=== PATIENT | female | born 1965 | race Two or more races ===

== ENCOUNTER 2023-06-03 11:00 | Outpatient (REF) | payer OTHER, SELFPAY ==
[2023-06-03 15:08] LABS: Alanine Aminotransferase 17 U/L (0-31); Albumin Level 4.3 g/dL (3.5-5.0); Alkaline Phosphatase 103 U/L (39-117); Aspartate Amino Transferase 21 U/L (5-31); Bilirubin Direct 0.2 mg/dL (0.0-0.5); Bilirubin Total 0.6 mg/dL (0.0-1.0); Total Protein 7.7 g/dL (6.5-8.0)
[2023-06-04 08:20] LABS: Hepatitis A Antibody IgM 0.29 Index (0-0.79); ~Hepatitis A Antibody IgM Nonreactive (Nonreactive)
[2023-06-04 08:45] LABS: HBS Num1 0.27 mIU/mL (0-7.99); HBc Num1 0.12 S/CO (0.00-0.79); HBsAGNum1 0.39 S/CO (0.00-0.99); Hepatitis B Core Antibody Nonreactive (Nonreactive); Hepatitis B Surface Antigen Negative (Negative); ~HepC Num1 0.07 S/CO (0.00-0.79); ~Hepatitis B Surface Antibody NONREACTIVE (Nonreactive); ~Hepatitis C Antibody Nonreactive (Nonreactive)
== END 2023-06-03 11:01 | disposition home or self-care (01) ==
LOC: HO.CHCLDS 11:00
PROVIDERS: Visit Provider Registered Nurse
DX: R10.11 Right upper quadrant pain (principal)
CPT/HCPCS: 36415; 80076; 86704; 86706; 86709; 86803; 87340

== ENCOUNTER 2023-09-27 10:06 | Outpatient (REF) | payer OTHER, SELFPAY ==
[2023-09-27 14:49] LABS: Alanine Aminotransferase 17 U/L (0-31); Albumin Level 4.1 g/dL (3.5-5.0); Alkaline Phosphatase 88 U/L (39-117); Anion Gap 11 (12-20); Aspartate Amino Transferase 26 U/L (5-31); Bilirubin Total 0.5 mg/dL (0.0-1.0); Blood Urea Nitrogen 13 mg/dL (9-16); Carbon Dioxide 26 mmol/L (22-29); Chloride 107 mmol/L (96-108); Cholesterol 229 mg/dL (<200); Estimated Glomerular Filt Rate > 60; Glucose Random 77 mg/dL (60-115); HDL Cholesterol 49 mg/dL (>40); LDL Cholesterol Calculated 143 mg/dL (<100); Potassium 3.9 mmol/L (3.3-5.1); Sodium 140 mmol/L (135-145); Total Protein 7.4 g/dL (6.5-8.0); Triglycerides 186 mg/dL (<150)
[2023-09-27 15:04] LABS: TSH reflex Free T4 1.54 uIU/mL (0.32-4.0)
== END 2023-09-27 10:07 | disposition home or self-care (01) ==
LOC: HO.CHCLDS 10:06
PROVIDERS: Visit Provider Internal Medicine
DX: E78.2 Mixed hyperlipidemia (principal); E03.9 Hypothyroidism, unspecified
CPT/HCPCS: 36415; 80053; 80061; 84443

== ENCOUNTER 2024-02-18 11:16 | Outpatient (REF) | payer OTHER, SELFPAY ==
[2024-02-18 15:09] LABS: Cholesterol 220 mg/dL (<200); HDL Cholesterol 50 mg/dL (>40); LDL Cholesterol Calculated 132 mg/dL (<100); Triglycerides 191 mg/dL (<150)
== END 2024-02-18 11:17 | disposition home or self-care (01) ==
LOC: HO.CHCLDS 11:16
PROVIDERS: Visit Provider Internal Medicine
DX: E78.2 Mixed hyperlipidemia (principal)
CPT/HCPCS: 36415; 80061

== ENCOUNTER 2024-08-23 11:51 | Outpatient (REF) | payer OTHER, SELFPAY ==
[2024-08-23 14:49] LABS: Alanine Aminotransferase 25 U/L (0-31); Albumin Level 4.2 g/dL (3.5-5.0); Alkaline Phosphatase 112 U/L (39-117); Anion Gap 11 (12-20); Aspartate Amino Transferase 27 U/L (5-31); Bilirubin Total 0.5 mg/dL (0.0-1.0); Blood Urea Nitrogen 10 mg/dL (9-16); Carbon Dioxide 29 mmol/L (22-29); Chloride 106 mmol/L (96-108); Cholesterol 223 mg/dL (<200); Estimated Glomerular Filt Rate > 60; Glucose Random 82 mg/dL (60-115); HDL Cholesterol 54 mg/dL (>40); LDL Cholesterol Calculated 135 mg/dL (<100); Potassium 4.3 mmol/L (3.3-5.1); Sodium 142 mmol/L (135-145); Total Protein 7.8 g/dL (6.5-8.0); Triglycerides 173 mg/dL (<150)
[2024-08-23 14:57] LABS: TSH reflex Free T4 0.01 uIU/mL (0.32-4.0)
[2024-08-23 15:34] LABS: Free T4 (Free Thyroxine) 1.39 ng/dL (0.71-1.85)
== END 2024-08-23 11:52 | disposition home or self-care (01) ==
LOC: HO.CHCLDS 11:51
PROVIDERS: Visit Provider Internal Medicine
DX: E78.2 Mixed hyperlipidemia (principal); E03.9 Hypothyroidism, unspecified
CPT/HCPCS: 36415; 80053; 80061; 84439; 84443

== ENCOUNTER 2025-01-12 12:04 | Outpatient (REF) | payer OTHER, SELFPAY ==
--- OUTSIDE RECORDS SUMMARY | 2025-01-12 14:21 | XMS_ITS | Encounter Summary ---
Author Organization [email or web address] Address [address] [facility] 7t [place] [address] Care Team Providers Care Shaft Headman Name Role Phone Richie Fam MD Primary Care Prov ider Reason for Visit * Reason Comments Med Refill Encounter Details Date Type Department Care Team ([facility] st Contact Info) Description 09/02/2024 Refill [facility] CHC MED & PEDS [address] [place], [place] [phone] Richie Fam MD 505 [place] [address] Mixed hyperlipidemia Social History Tobacco Use Types Packs/Day Years Used Date Smoking Tobacco: Never Passive Smoke Exposure: Never Smokeless Tobacco: Never Alcohol Use Standard Drinks/Week Comments Never 0 (1 standard drink = 0.6 oz pur e alcohol) Depression Answer Date Recorded Patient Health Questionnaire-9 Score 0 08/30/2024 Patient Health Questionnaire-9 Score 0 08/30/2024 Last PHQ-9: Questionnaire Data Not on file 1 Housing Stability Answer Date Recorded What is your housing situation today? I have mary dominguez 09/07/[address] you li ve. Do you have problems with any of the following? None of the above 09/07/2023 Food Insecurity Answer Date Recorded Within the past 12 months, y ou worried that your food would run out before you got money to buy more: Never True 09/07/2023 Within the past 12 months,th e food you bought just didn't last and you didn't have enough money to get more: Never True Transportation Answer Date Recorded In the past 12 months, has l ack of transportation kept you from medical appts, meetings, work or from getting things needed for daily living? No 09/07/2023 Utilities Answer Date Recorded In the past 12 months, has t he electric, gas, oil or water company threatened to shut off services in your home? No 09/07/2023 Depression Answer Date Recorded Patient Health Questionnaire-2 Score 0 08/30/2024 Comments Unknown Sex and Gender Information Value Date Recorded Sex Assigned at Female 09/14/2022 10:37 AM EDT Legal Sex Female 10:37 AM EDT Gender Identity Female 09/14/2022 10:37 AM EDT Sexual Orientation Straight 09/14/2022 10 :37 AM EDT documented as of this encounter Plan of Treatment Not on file documented as of this encounter Visit Diagnoses Diagnosis Mixed hyperlipidemia documented in this encounter Additional Health Concerns Assessment Noted Time PHQ-9 Depression Total Score: 0 08/30/20 24 9:27 AM EDT documented as of this encounter Care Teams Shaft Headman Relationship Specialty Start Date End Date Richie Fam MD [address] [place] [id number] PCP - General Internal Medicine 10/21/20 documented as of this encounter
--- OUTSIDE RECORDS SUMMARY | 2025-01-12 14:21 | XMS_ITS | Encounter Summary ---
Author Organization [employer] Address [address] [place] [address] 7 [place] [address] Care Team Providers Care Director Of Mobile Marketing Name Role Phone Richie Fam MD Primary Care Prov ider Encounter Details Date Type Department Care Team (Late st Contact Info) Description 12/21/2022 Telephone [facility] MEDICINE [address] [place], [place] [phone] Richie Fam MD [address] [place], [place] [phone] Social History Tobacco Use Types Packs/Day Years Used Date Smoking Tobacco: Never Passive Smoke Exposure: Never Smokeless Tobacco: Never Alcohol Use Standard Drinks/Week Comments Never 0 (1 standard drink = 0.6 oz pur e alcohol) Comments Unknown Sex and Gender Information Value Date Recorded Sex Assigned at Female 09/14/2022 10:37 AM EDT Legal Sex Female 10:37 AM EDT Gender Identity Female 09/14/2022 10:37 AM EDT Sexual Orientation Straight 09/14/2022 10 :37 AM EDT COVID-19 Exposure Response Date Recorded In the last 10 days, have yo u been in contact with someone who was confirmed or suspected to have Coronavirus/COVID-19? No / Unsure 12/24/2022 10:38 AM EST documented as of this encounter Plan of Treatment Not on file documented as of this encounter Visit Diagnoses Not on filedocumented in this encounter Care Teams Director Of Mobile Marketing Relationship Specialty Start Date End Date Richie Fam MD [address] [place] [address] PCP - General Internal Medicine 10/21/20 documented as of this encounter
--- OUTSIDE RECORDS SUMMARY | 2025-01-12 14:21 | XMS_ITS | Encounter Summary ---
Author Organization [employer] Address [address] [place] [address] 7 [place] [address] Care Team Providers Care Dog Walker Name Role Phone Richie Fam MD Primary Care Prov ider Encounter Details Date Type Department Care Team (Late st Contact Info) Description 07/15/2023 Orders Only [facility] CHC MED & PEDS [address] [place], [place] [phone] Richie Fam MD 505 [place] [address] Social History Tobacco Use Types Packs/Day Years Used Date Smoking Tobacco: Never Passive Smoke Exposure: Never Smokeless Tobacco: Never Alcohol Use Standard Drinks/Week Comments Never 0 (1 standard drink = 0.6 oz pur e alcohol) Depression Answer Date Recorded Patient Health Questionnaire-9 Score 0 04/01/2023 Depression Answer Date Recorded Patient Health Questionnaire-2 Score 0 04/01/2023 Comments Unknown Sex and Gender Information Value Date Recorded Sex Assigned at Female 09/14/2022 10:37 AM EDT Legal Sex Female 10:37 AM EDT Gender Identity Female 09/14/2022 10:37 AM EDT Sexual Orientation Straight 09/14/2022 10 :37 AM EDT documented as of this encounter Plan of Treatment Not on file documented as of this encounter Visit Diagnoses Not on filedocumented in this encounter Additional Health Concerns Assessment Noted Time PHQ-9 Depression Total Score: 0 04/01/20 23 1:50 PM EDT documented as of this encounter Care Teams Dog Walker Relationship Specialty Start Date End Date Richie Fam MD [address] [place] [address] PCP - General Internal Medicine 10/21/20 documented as of this encounter
--- OUTSIDE RECORDS SUMMARY | 2025-01-12 14:21 | XMS_ITS | Encounter Summary ---
Author Organization [employer] Address [address] [facility] 7 [place] [address] Care Team Providers Care Office Electrician Name Role Phone Richie Fam MD Primary Care Prov ider Reason for Visit * Reason Onset Date Comments Call Back Request 08/14/2024 Encounter Details Date Type Department Care Team ([facility] st Contact Info) Description 08/14/2024 Telephone [facility] MEDICINE [address] [place] [address] Richie Fam MD 505 [place] [address] Call Back Request Social History Tobacco Use Types Packs/Day Years Used Date Smoking Tobacco: Never Passive Smoke Exposure: Never Smokeless Tobacco: Never Alcohol Use Standard Drinks/Week Comments Never 0 (1 standard drink = 0.6 oz pur e alcohol) Depression Answer Date Recorded Patient Health Questionnaire-9 Score 0 04/01/2023 Housing Stability Answer Date Recorded What is [...] AM EDT documented as of this encounter Miscellaneous Notes * Telephone Encounter - Victoriano Skinner - 08/14/2024 9:28 AM EDT Tc from patient requesting a call back states had done the labs as requested on 07/27 at [facility] in [facility] and was told there is no results in the system would like to know what to do documented in this encounter Plan of Treatment Not on file documented as of this encounter Visit Diagnoses Not on filedocumented in this encounter Additional Health Concerns Assessment Noted Time PHQ-9 Depression Total Score: 0 04/01/20 23 1:50 PM EDT documented as of this encounter Care Teams Office Electrician Relationship Specialty Start Date End Date Richie Fam MD [address] [place] [id number] PCP - General Internal Medicine 10/21/20 documented as of this encounter
--- OUTSIDE RECORDS SUMMARY | 2025-01-12 14:21 | XMS_ITS | Encounter Summary ---
Author Organization [employer] Address [address] [facility] 7 [place] [address] Care Team Providers Care Agriculture Extension Specialist Name Role Phone Richie Fam MD Primary Care Prov ider Reason for Visit * Reason Onset Date Comments Created In Error 07/25/2024 Encounter Details Date Type Department Care Team ([facility] st Contact Info) Description 07/25/2024 Telephone [facility] MEDICINE [address] [place] [address] Richie Fam MD 505 [place] [address] Created In Error Social History Tobacco Use Types Packs/Day Years [...] documented as of this encounter Care Teams Agriculture Extension Specialist Relationship Specialty Start Date End Date Richie Fam MD [address] [place] [id number] PCP - General Internal Medicine 10/21/20 documented as of this encounter
--- OUTSIDE RECORDS SUMMARY | 2025-01-12 14:21 | XMS_ITS | Encounter Summary ---
Author Organization [employer] Address [address] [facility] 7 [place] [address] Care Team Providers Care Plow Mechanic Name Role Phone Richie Fam MD Primary Care Prov ider Reason for Visit * Reason Onset Date Comments Nurse Triage 07/25/2024 Encounter Details Date Type Department Care Team ([facility] st Contact Info) Description 07/25/2024 Telephone [facility] MEDICINE [address] [place] [address] Richie Fam MD 505 [place] [address] Nurse Triage Social History Tobacco Use Types Packs/Day Years [...] encounter Miscellaneous Notes * Telephone Encounter - Mnady Brasher RN - 07/25/2024 10:50 AM EDT Triage call Pt reports increased heart burn over the last 2 weeks. Pt reports prescribed omeprazolehas not been taken due to increased fibromyalgia pain which is a side effect. Pt reports sour aftertaste consistently. Pt has taken tums with some effect. Pt reports some chest discomfort as well. ASK apt with Dr. Grimm 07/27/24 @ 400pm. Pt is given home care advise, increase liquids to 6- 8 glasses daily, maalox/mylanta OTC may help. Pt agrees with disposition and Insurance is verified as active prior to booking. Protocol Used: Abdominal Pain - Upper (Adult) Protocol-Based Disposition: See in Office or Video Visit within 2 Weeks Video visit not offered Positive Triage Question: * Intermittent pains shoot into chest, with sour taste in mouth (Exception: Symptoms same as previously diagnosed reflux and not tried antacids.) * All higher-acuity triage questions were negative Care Advice Discussed: * Reassurance and Education - Stomach Pain * Antacid Medicine * Drink Clear Fluids * Diet * Food Recommendations to Reduce Reflux * Reasons To Call Back - Severe pain present over 1 hour - Moderate pains come and go for more than 24 hours - Mild pains come and go for more than 72 hours - You become worse * Telephone Encounter - Reggie Emerson - 07/25/2024 10:12 AM EDT Symptoms: Heartburn - Caller Reports, Abdominal Swelling Outcome: Transfer to a nurse or provider NOW! Reason: Heaviness on chest documented in this encounter Plan of Treatment Not on file documented as of this encounter Visit Diagnoses Not on filedocumented in this encounter Additional Health Concerns Assessment Noted Time PHQ-9 Depression Total Score: 0 04/01/20 23 1:50 PM EDT documented as of this encounter Care Teams Plow Mechanic Relationship Specialty Start Date End Date Richie Fam MD [address] [place] [id number] PCP - General Internal Medicine 10/21/20 documented as of this encounter
--- OUTSIDE RECORDS SUMMARY | 2025-01-12 14:21 | XMS_ITS | Clinical Summary ---
Author Organization [employer] Address [address] [place] [address] 7t [place] [address] Care Team Providers Care Stone Layout Marker Name Role Phone Richie Fam MD Primary Care Prov ider Allergies Active Allergy Reactions Criticality Noted Date Comments Morphine Itching High 05/28/2015 Procaine Palpitations,Shortne ss of breath High 10/26/2018 Other reaction(s): Procaine, Procaine Medications triamcinolone (Kenalog) 0.5 % cream APPLY THIN LAYER TOPICALLY TO THE AFFECTED AREA TWICE DAILY FOR 7 DAYS 2 Active polyethylene glycol, PEG, 3350 (MiraLax) 17 GM/SCOOP powder Take 17 g by mouth. 2 Active omeprazole (PriLOSEC) [address] capsule TAKE 1 CAPSULE BY MOUTH EVERY DAY 30 MINUTES BEFORE BREAKFAST 3 Active loratadine (Claritin) 10 MG tablet Take 10 mg by mouth in the morning. 3 Active ketotifen (Zaditor) 0.025 % ophthalmic solution 3 Active fluticasone (Flonase) 50 MCG/ACT nasal spray INSTILL 1 SPRAY IN EACH NOSTRIL ONCE A DAY 3 Active famotidine (Pepcid) 40 MG tablet Take 1 tablet by mouth at bed time. 2 Active ibuprofen 400 MG tabletIndications: Pharyngitis, unspecified etiology Take 1 tablet (400 mg) by mouth if needed in the morning, at noon, in the evening, and at bedtime for mild pain. 30 tablet 3 Active albuterol 108 (90 Base) MCG/ACT inhaler Inhale 2 puffs every 4 (four) hours if needed for shortness of breath. 18 g 1 3 Active hydrOXYzine pamoate (Vistaril) 25 MG capsule TAKE 1 CAPSULE BY MOUTH TWICE DAILY NEEDED FOR ANXIETY OR SLEEP 30 capsule 2 3 Active tretinoin (Retin-A) 0.025 % creamIndications:M ilium cyst Apply topically at bedtime. 45 g 11 4 03/28/20 25 Active levothyroxine (Synthroid, Levoxyl) 50 MCG tablet Take 1 tablet (50 mcg) by mouth before breakfast. 30 tablet 11 4 08/30/20 25 Active sucralfate (Carafate) 1 g tablet TAKE 1 TABLET(1 GRAM) BY MOUTH BEFORE BREAKFAST AND BEFORE THE EVENING MEAL 60 tablet 4 Active simvastatin (Zocor) 40 MG tabletIndications: Mixed hyperlipidemia TAKE 1 TABLET(40 MG) BY MOUTH IN THE EVENING 90 tablet 3 5 Active Active Problems Problem Noted Date Diagnosed Date EPPERSON (nonalcoholic steatohepatitis) 09/16/2023 Assessment & Plan (03/07/2024 1:20 PM EDT): Followed by gastroenterology, encouraged weight loss, Assessment & Plan (09/16/2023 2:39 PM EDT): Mri done recently, no liver mass, followed by gastroenterology Skin growth 09/16/2023 Assessment & Plan (09/16/2023 2:43 PM EDT): Patient complains of multiple dark skin growth on her back, wants to be evaluated by dermatology, referral will be placed Annual physical exam 12/24/2022 Atypical chest pain 12/17/2022 Hyperlipidemia 12/17/2022 Assessment & Plan (08/30/2024 9:58 AM EDT): Will leave on current therapy, encouraged exercise, weight loss healthy lifestyle, will continue monitoring Assessment & Plan (08/17/2024 3:03 PM EDT): On simvastatin 40mg, she has not tolerated high intensity statin or increase in simvastatin, will order new labs to evaluate current trend, follow up in 1 month to discuss result and evaluate other treatment options Assessment & Plan (03/07/2024 1:22 PM EDT): On simvastatin 40mg, slight improvement in cholesterol, encouraged diet and exercise, continue weight loss, follow up in 6 months Assessment & Plan (09/16/2023 2:38 PM EDT): On simvastatin, high intensity statin have been tried previously but they were not tolerated by patient, new labs will be ordered for guidance Assessment & Plan (04/01/2023 2:16 PM EDT): Will place new lab orders for guidance of therapy, she has been eating healthier and exercising more frequently, will call with results Assessment & Plan (02/02/2023 6:26 PM EDT): Patient had nausea/vomiting, related to rosuvastatin, will switch back to simvastatin 20mg, repeat labs in 3 months Assessment & Plan (12/24/2022 11:32 PM EST): Not controlled, will switch to rosuvastatin 10mg, and will follow up in 2 months Migraines 12/17/2022 PTSD (post-traumatic stress disorder) 12/17/2022 Seasonal asthma 12/17/2022 Thrombocytosis 12/17/2022 Pharyngitis 12/17/2022 Assessment & Plan (12/17/2022 4:59 PM EST): Rapid strep negative, no erythema, or exudates, she reports right sided pain and swelling, this was not visualized on examination and also no mass was detected on manual palpation. Did make her a followup with her PCP to assess how she is doing. Use ibuprofen prn. Disease due to severe acute respiratory syndrome coronavirus 2 (SARS-CoV-2) 09/06/2022 Overview (12/17/2022): Problem added by Discern Expert Constipation 11/18/2021 Overview (12/17/2022): Added automatically from request for surgery [id number] Fibromyalgia 06/14/2017 Endometriosis determined by laparoscopy 06/14/20 17 Overview (12/17/2022): 2007 Hypothyroid 06/14/2017 Assessment & Plan (08/30/2024 9:59 AM EDT): Will decrease levothyroxine to 50mcg, new thyroid ultrasound will be ordered due to hx of thyroid nodules, labs to be repeated in 6-8 weeks Assessment & Plan (08/17/2024 3:02 PM EDT): On levothyroxine 50mcg, new labs will be ordered for guidance of therapy, she is clinically euthyroid Assessment & Plan (03/07/2024 1:21 PM EDT): Followed by endocrinology, on levothyroxine 75mcg, no changes will be made Assessment & Plan (09/16/2023 2:37 PM EDT): On oral replacement, will order new labs for guidance of therapy Assessment & Plan (12/24/2022 11:32 PM EST): Will order new labs for guidance of therapy, clnically euthyroid Pain of multiple sites 06/14/2017 Dysphagia 05/28/2015 Overview (12/17/2022): Apparently endoscopy done X 3-5 times - ? findings Encounters Date Type Department Care Team Description 11/30/2024 Refill [facility] CHC MED & PEDS [address] [place] [address] Richie Fam MD Mixed hyperlipidemia from Last 3 Months Immunizations Name Administration Dates Next Due Tdap 03/26/2022 Social History Tobacco Use Types Packs/Day Years Used Date Smoking Tobacco: Never Passive Smoke Exposure: Never Smokeless Tobacco: Never Tobacco Cessation:Counseling Given: Not Answered Alcohol Use Standard Drinks/Week Comments Never 0 [...] t he electric, gas, oil or water [employer] threatened to shut off services in your home? No 09/07/2023 Depression Answer Date Recorded Patient Health Questionnaire-2 Score 0 08/30/2024 Comments Unknown Sex and Gender Information Value Date Recorded Sex Assigned at Female 09/14/2022 10:37 AM EDT Legal Sex Female 10:37 AM EDT Gender Identity Female 09/14/2022 10:37 AM EDT Sexual Orientation Straight 09/14/2022 10 :37 AM EDT Last Filed Vital Signs Vital Sign Reading Time Taken Comments Blood Pressure 131/71 07/27/2024 4:16 PM EDT Pulse 80 07/27/2024 4:16 PM EDT Temperature 37.1 ??C (98.7 ??F) 07/27/2024 4:16 PM ED T Respiratory Rate 20 07/27/2024 4:16 PM EDT Oxygen Saturation 96% 03/28/2024 10:02 AM EDT Inhaled Oxygen Concentration - - Weight 61.8 kg (136 lb 3.2 oz) 07/27/2024 4:16 P M EDT Height 149.9 cm (4' 11 ) 07/27/2024 4:16 PM EDT Body Mass Index 27.51 07/27/2024 4:16 PM EDT Plan of Treatment Health Maintenance Due Date Last Done Comments CT Colonography 1963 FIT DNA/Cologuard 1963 FIT 1963 FOBT 1963 Sigmoidoscopy 1963 Derm Melanoma Skin Check 05/26/1964 Alcohol/Substance Use Screening 1975 Hepatitis A Vaccines (1 of 2 - Risk 2-dose series) 1982 Pneumococcal Vaccine: 50+ Years (1 of 2 - PCV) 1982 Zoster Vaccines (1 of 2) 2013 Hepatitis B Vaccines (1 of 3 - Risk 3-dose series) 2023 RSV Patients and Patients Aged 60 years or older (1 - Risk 60-74 years 1-dose series) 2023 SDOH Screening 04/01/2024 04/01/2023 COVID-19 Vaccine (1 - 2023-2 5 season) 2024 Influenza Vaccine (#1) 2024 Tobacco Screening 07/27/2025 07/27/2024 Depression Screening 08/30/2025 08/30/2024, 08/30/2024 Mammogram 09/17/2025 09/17/2023 Cervical Cancer Screening 02/04/2028 HPV/Cotest 02/04/2028 02/03/2023 Pap Smear 02/04/2028 02/03/2023 Colonoscopy 01/16/2032 01/15/2022 Colorectal Cancer Screening 01/16/2032 DTaP/Tdap/Td Vaccines (2 - T d or Tdap) 03/26/2032 03/26/2022 HIV Screening Completed 10/28/2020 Hepatitis C Screening Completed 06/03/2023 , 04/02/2023 HIB Vaccines Aged Out No longer eligi ble based on patient's age to complete this topic HPV Vaccines Aged Out No longer eligi ble based on patient's age to complete this topic IPV Vaccines Aged Out No longer eligi ble based on patient's age to complete this topic Meningococcal Vaccine Aged Out No maria a david eligible based on patient's age to complete this topic RSV under 20 months Aged Out No longe r eligible based on patient's age to complete this topic Rotavirus Vaccines Aged Out No longer eligible based on patient's age to complete this topic Procedures Procedure Name Priority Date/Time Associated Diagnosis Comments MAMMOGRAPHY Routine 09/17/2023 HEPATITIS PANEL, GENERAL Routine 06/03/2023 11:23 AM EDT RUQ pain PAP/HPV Routine 02/03/2023 COLONOSCOPY Routine 01/15/2022 12:01 PM EST HIV 1/2 ANTIGEN/ANTIBODY, FOURTH GENERATION W/RFL Routine 10/28/2020 10:29 AM EST from Last 3 Months or Most Recently Relevant to Health Maintenance Results * Mammography (09/17/2023) Mammogram Bi-rads 2 Anatomical Region Laterality Modality Other Historical Provider MD HEALTH MAINTENANCE Final Result * Hepatitis A,B,C Profile (06/03/2023 11:23 AM EDT) Hepatitis A IgM Nonreactive Nonreactive [facility] Comment:IgM antibodies to GUILLORY V not detected; does not exclude earlyacute or recovered HAV infection. ~Hepatitis B Surface Antibody NONREACTIVE Nonreactive [facility] Comment:Nonreactive: < 8.00 mIU/mL Hepatitis B Core Antibody Nonreactive Nonreactive [facility] Hepatitis C Antibody Nonreactive Nonreactive [facility] Comment:Antibodies to HCV no t detected; does not exclude early acuteHCV infection. Hepatitis B Surface Ag Negative Negative [facility] Blood 06/03/2023 11:2 3 AM EDT 06/03/2023 2:04 PM EDT Lorelei Clinton DEPARTMENT SALES MANAGER LAB BLOOD ORDERABLES Final Res ult [facility] [address] [place] [phone] * Pap Smear (02/03/2023) Pathologist [facility] Pap Negative for intraephithelial lesion or malignancy Negative for intraephithelial lesion or malignancy, Other HPV Undetected Undetected, Indeterminate, Quantitative, Not Detected Historical Provider [facility] Final Result * Colonoscopy (01/15/2022 12:01 PM EST) Pathologist [facility] Colonoscopy Normal Normal Historical Provider [facility] Edited Result - Final * HIV 1/2 ANTIGEN/ANTIBODY,FOURTH GENERATION W/RFL (10/28/2020 10:29 AM EST) Pathologist [facility] HIV-1/2 ANTIGEN AND ANTIBODIES, 4TH GENERATION W/ REFLEX NON-REACT ALIS NON-REACT ALIS [facility] Comment: HIV-1 antigen and HIV-1/HIV-2 antibodies were not detected. There is no laboratory evidence of HIV infection. ?? PLEASE NOTE: This information has been disclosed to you from records whose confidentiality may be protected by state law. ??If your state requires such protection, then the state law prohibits you from making any further disclosure of the information without the specific written consent of the person to whom it pertains, or as otherwise permitted by law. A general authorization for the release of medical or other information is NOT sufficient for this purpose. ? For additional information please refer to http://education.Woofound.27 bards/faq/IYB338 (This link is being provided for informational/ educational purposes only.) ? The performance of this assay has not been clinically validated in patients less than 2 years old. ?? 10/28/2020 10:2 9 AM EST Richie Nava MD LAB BLOOD ORDERABL ES Final Result [facility] [address] from Last 3 Months or Most Recently Relevant to Health Maintenance Insurance [facility] Care Teams Stone Layout Marker Relationship Specialty Start Date End Date Richie Fam MD [address] [place] [phone] PCP - General Internal Medicine 10/21/20
--- OUTSIDE RECORDS SUMMARY | 2025-01-12 14:21 | XMS_ITS | Clinical Summary ---
Author Organization [facility] Address [address] [place] [address] Care Team Providers Care General Engineering Teacher Name Role Phone Stella Pratt MD Primary Care Provide r Allergies Active Allergy Reactions Criticality Noted Date Comments Morphine 01/12/2018 Medications Medication Sig Dispensed Refills Start Date End Date Status simvastatin (ZOCOR) tablet 20 mg Take 20 mg by mouth every night at bedtime. 0 Active albuterol (PROVENTIL) (2.5 MG/3ML) 0.083% nebulizer solution Take 2.5 mg by nebulization every 6 (six) hours as needed for wheezing. 0 Active omeprazole (PRILOSEC) 40 MG capsule Take 40 mg by mouth daily. 0 Active LORazepam (ATIVAN) 0.5 MG tablet Take 0.5 mg by mouth every 6 (six) hours as needed. 0 Active levothyroxine (SYNTHROID, LEVOXYL) tablet 50 mcg Take 50 mcg by mouth every morning on an empty stomach. 0 Active CALCIUM-VITAMIN D PO Take by mouth. 0 Active sertraline (ZOLOFT) 25 MG tablet Take 25 mg by mouth daily. 0 Active B Complex Vitamins (B COMPLEX PO) Take by mouth. 0 Active Active Problems No known active problems Social History Tobacco Use Types Packs/Day Years Used Date Smoking Tobacco: Never Smokeless Tobacco: Never Alcohol Use Standard Drinks/Week Comments No 0 (1 standard drink = 0.6 oz pur e alcohol) Sex and Gender Information Value Date Recorded Sex Assigned at Not on file Gender Identity Not on file Sexual Orientation Not on file Last Filed Vital Signs Vital Sign Reading Time Taken Comments Blood Pressure 121/65 01/13/2018 9:23 AM EST Pulse 84 01/13/2018 9:23 AM EST Temperature - - Respiratory Rate - - Oxygen Saturation - - Inhaled Oxygen Concentration - - Weight 58.1 kg (128 lb) 01/13/2018 9:23 AM EST Height 139.7 cm (4' 7 ) 01/13/2018 9:23 AM EST Body Mass Index 29.75 01/13/2018 9:23 AM EST Plan of Treatment Health Maintenance Due Date Last Done Comments Hepatitis C Screening 1963 COVID-19 Vaccine (#1) 05/26/1964 Depression Screening 1975 Preventative Health Evaluation 1981 DTap / Tdap / Td (1 - Tdap) 1982 Cervical Cancer Screening (P ap Smear) 1984 Colon Cancer Screening (Colonoscopy) 2008 Breast Cancer Screening (Mammogram) 2013 Shingrix-Zoster Vaccine (1 of 2) 2013 Influenza Vaccine (#1) 2024 RSV Adult > 60+ Yrs or Pregn ant (1 - 1-dose 75+ series) 2038 Hepatitis B Vaccines Aged Out No long er eligible based on patient's age to complete this topic Pneumococcal Vaccine Aged Out No long er eligible based on patient's age to complete this topic RSV Ped < 20 months Aged Out No longe r eligible based on patient's age to complete this topic Care Teams General Engineering Teacher Relationship Specialty Start Date End Date Stella Pratt MD PCP - General Internal Medicine 12/20/17
--- OUTSIDE RECORDS SUMMARY | 2025-01-12 14:21 | XMS_ITS | Encounter Summary ---
Author Organization [employer] Address [address] [place] [address] [place] [address] Care Team Providers Care Lamination Inspector Name Role Phone Richie Fam MD Primary Care Prov ider Reason for Visit * Reason Comments Med Refill Encounter Details Date Type Department Care Team ([facility] st Contact Info) Description 12/24/2022 Refill [facility] MED & PEDS [address] [place], [place] [phone] Richie Fam MD [address] [place] [address] Mixed hyperlipidemia Social History Tobacco Use Types [...] Diagnosis Mixed hyperlipidemia documented in this encounter Care Teams Lamination Inspector Relationship Specialty Start Date End Date Richie Fam MD [address] [place] [address] PCP - General Internal Medicine 10/21/20 documented as of this encounter
--- OUTSIDE RECORDS SUMMARY | 2025-01-12 14:21 | XMS_ITS | Data Portability ---
Author Organization [employer] Address [address] [place] [phone] Care Team Providers Care Batch Records Clerk Name Role Phone [facility] Referring Provider [phone] [facility] Referring Provider Assessment No assessment recorded. Plan of Treatment Reminders Order Date Submit Date Provider Last Modified By Organization Details Last Modified Time Details Appointments None record ed. Lab None record ed. Referral None record ed. Procedures None record ed. Surgeries None record ed. Imaging None record ed. Medication Orders None record ed. Patient TargetsNo targets recorded. Patient InstructionsNo instructions recorded. Reason for Referral None Reported. Medical Equipment None Reported. Allergies Allergen ID Allergen Name Allergen Category Reaction Reaction Severity Criticality Documentation Date Start Date Code Code System Note Provider Name and Address Organization Details Recorded Time 7390 morphine medicatio n Not available Not available Not available 09/12/2024 7052 RxNorm Not Available [facility] - production 4 03:37:11 Medications Name Sig Start Date Stop Date Status Note LastModified by Organization Details LastModified Time atorvastatin 40 mg tablet TAKE 1 TABLET BY MOUTH EVERY DAY active Not Available Not Available No t Available triamcinolone acetonide 0.5 % topical cream APPLY THIN LAYER TOPICALLY TO THE AFFECTED AREA TWICE DAILY FOR 7 DAYS active Not Available Not Available No t Available ketotifen 0.025 % (0.035 %) eye drops active Not Available Not Available Not Available levothyroxine 50 mcg tablet TAKE 1 TABLET BY MOUTH EVERY DAY DIRECTED active Not Available Not Available No t Available simvastatin 20 mg tablet TAKE 1 TABLET BY MOUTH EVERY DAY IN THE EVENING active Not Available Not Available No t Available ibuprofen 400 mg tablet active Not Available Not Available No t Available omeprazole 20 mg capsule,delay ed release TAKE 1 CAPSULE BY MOUTH EVERY DAY 30 MINUTES BEFORE BREAKFAST active Not Available Not Available No t Available clobetasol 0.05 % topical ointment APPLY THIN LAYER TOPICALLY TO THE AFFECTED AREA TWICE DAILY active Not Available Not Available No t Available albuterol sulfate HFA 90 mcg/actuation aerosol inhaler INHALE 2 PUFFS BY MOUTH EVERY 4 HOURS NEEDED active Not Available Not Available No t Available fluticasone propionate 50 mcg/actuation nasal spray,suspens ion INSTILL 1 SPRAY IN EACH NOSTRIL ONCE A DAY active Not Available Not Available N ot Available loratadine 10 mg tablet TAKE 1 TABLET BY MOUTH EVERY DAY active Not Available Not Available No t Available hydroxyzine pamoate 25 mg capsule TAKE 1 CAPSULE BY MOUTH TWICE DAILY NEEDED FOR ANXIETY OR SLEEP active Not Available Not Available No t Available rosuvastatin 10 mg tablet active Not Available Not Available Not Available Vitals Date Recorded Oxygen saturation Oxygen saturation in Arterial blood by Pulse oximetry Respiratory rate Body temperature Body weight Heart rate Systolic blood pressure Diastolic blood pressure Provider Name and Address Organization Details Last Updated DateTime 3 98 % 98 % 18 /min 97.1 [degF] 40891.3 28 g 85 /min 122 mm[Hg] 66 mm[Hg] Not Available [facility] - production 3 11:54:59 Social History None recorded. Functional Status None recorded. Mental Status None recorded. Family History Nothing Reported. Medical History No medical history recorded. Gynecological HistoryNo gynecological history recorded. Obstetrics History GPAL:G 0 P 0 0 0 0 Past Encounters Encounter ID Performer Location Encounter Start Date Encounter Closed Date Diagnosis/Indication Diagnosis SNOMED-CT Code Diagnosis ICD10 Code Diagnosis Note [id number] Jazz Maxwell MD Main - [facility] [address] [place] [phone] 02/22/2023 11:54:57 02/24/2023 10:07:54 Viral upper respiratory tract infection 428823462 J06.9 57 year old female being evaluated for a week of cough and chest congestion . Patient reports this feels like bronchitis . Taking mucinex with little relief. Does not have shortness of breath or fever. Is tolerating PO, and taking inhalers twice a day for wheezing. Exam notable for normal vital signs, lung exam with good air entry and scattered rhonchi. Presentati on consistent with viral bronchitis , without concern for a bacterial pneumonia at this time. Continue supportive care, recommende d OTC cough suppressan t and increased frequency of inhalers if needed. FU if persistent after two more weeks without improvemen t. Health Concerns Section Related Observation LastModified by Organization Hakeem gauthier LastModified Time None Recorded Concern Status LastModified by Organization Details LastModified Time None Recorded Advance Directives Directive None Recorded Payers Encounter Date Sequence Insurance Name Policy Number Policy Jones Covered Member ID Jones Member ID Guarantor Name 02/22/2023 1 [facility] - DOS PRIOR TO 2023 - DUAL ELIGIBLE (MEDICARE REPLACEMENT/ADV ANTAGE - HMO) Jazlyn Chin [id number] Jazlyn Velasqueztiffany Notes Date Note Type Note Provider Name and Address Organization Details Recorded Time 02/22/2023 text/html HPI: Call to Jazlyn Mancuso Elsy, reports having sx of congestion cough and sputum x 1 week. Per pt having yellow/green sputum. Per pt having intemrittent wheezing. Does resolve with inhaler. Per pt denies any fever. Per pt did complete homekit for COVID-19 and negative. pt unable to come into [facility]. Agrees to [facility] referral for assessment. .................. .................. .................. .................. .................. .................. .................. ............... CRC Nursing Assessment: Comments: CRC RN DID NOT NEED FURTHER INFO < MICKY Maxwell MD [address] [facility],[address], [place], [address], [place] [employer] 02/22/2023 12:00:55 OBGyn Episode No OBEpisode recorded.
--- OUTSIDE RECORDS SUMMARY | 2025-01-12 14:21 | XMS_ITS | Clinical Summary ---
Author Organization [facility] Address [address] [place] [phone] Care Team Providers Care Car Shakeout Operator Name Role Phone Stella Pratt MD Primary Care Provider Medical History Medical History Date Comments Hypothyroid 06/14/2017 DX:Hypothyroid Hypercholesteremia 06/14/2017 DX:Hyperchole steremia History of depression 06/14/2017 DX:History of depression; COMMENT: With panic attacks History of asthma 06/14/2017 DX:History of asthma Dysphagia 06/14/2017 DX:Dysphagia Endometriosis determined by laparoscopy DX:Endometriosis determined by laparoscopy; COMMENT: 2006 Bowel perforation ([facility]) 2006 DX:B owel perforation ([facility]); COMMENT: complication of laparoscoy Family History Medical History Relation Name Comments Arthritis Brother Arthritis Father Arthritis Sister Relation Name Status Comments Brother Father Sister Social History Tobacco Use Types Packs/Day Years Used Date Smoking Tobacco: Never Smokeless Tobacco: Never Comments Unknown Sex and Gender Information Value Date Recorded Sex Assigned at Not on file Legal Sex Female 5:41 AM EST Gender Identity Not on file Sexual Orientation Not on file Obstetrics History Plan of Treatment Health Maintenance Due Date Last Done Comments Breast Cancer Screening 1963 DTaP,Tdap,and Td Vaccines (1 - Tdap) 1982 Cervical Cancer Screening: P ap Smear 1984 Pneumococcal Vaccine: 50+ Ye ars (1 of 1 - PCV) 2013 Zoster Vaccines (1 of 2) 2013 COVID-19 Vaccine ( - 2023-2 5 season) 2024 Influenza Vaccine (#1) 2024 RSV Immunization Patients 60 + Years Old (1 - 1-dose 75+ series) 2038 HIB Vaccines Aged Out No longer eligi ble based on patient's age to complete this topic HPV Vaccines Aged Out No longer eligi ble based on patient's age to complete this topic Hepatitis A Vaccines Aged Out No long er eligible based on patient's age to complete this topic Hepatitis B Vaccines Aged Out No long er eligible based on patient's age to complete this topic IPV Vaccines Aged Out No longer eligi ble based on patient's age to complete this topic MMR Vaccines Aged Out No longer eligi ble based on patient's age to complete this topic Meningococcal ACWY Vaccine Aged Out N o longer eligible based on patient's age to complete this topic Meningococcal B Vacine Aged Out No lo nger eligible based on patient's age to complete this topic Pneumococcal Vaccine: Pediat rics (0 to 5 Years) and At-Risk Patients (6 to 64 Years) Aged Out No longer eligible b ased on patient's age to complete this topic RSV Immunization Patients Un ena 20 months Aged Out No longer eligible b ased on patient's age to complete this topic Varicella Vaccines Aged Out No longer eligible based on patient's age to complete this topic Care Teams Car Shakeout Operator Relationship Specialty Start Date End Date Stella Pratt MD PCP - General Internal Medicine 03/31/17
--- OUTSIDE RECORDS SUMMARY | 2025-01-12 14:21 | XMS_ITS | Clinical Summary ---
Author Organization [facility] Address [address] [place] [address] Care Team Providers Care Dive Master Name Role Phone Unavailable Primary Care Provider Unavailabl e Allergies No known active allergies Medications Medication Sig Dispensed Refills Start Date End Date Status levothyroxine (Synthroid) 50 MCG tablet Take 50 mcg by mouth daily on an empty stomach. Active Social History Tobacco Use Types Packs/Day Years Used Date Smoking Tobacco: Never Assessed Sex and Gender Information Value Date Recorded Sex Assigned at Not on file Gender Identity Not on file Sexual Orientation Not on file Plan of Treatment Health Maintenance Due Date Last Done Comments Hepatitis C Virus Screening 1963 HIV Screening 1976 DTaP/Tdap/Td Vaccines (1 - Tdap) 1982 Pap Smear (Ages 21-65) 1984 Mammogram 2003 Colonoscopy 2008 Pneumococcal Vaccines 50+ (1 of 1 - PCV) 2013 Zoster (Shingles) Vaccine (1 of 2) 2013 Influenza Vaccine 06/15/2024 COVID-19 Vaccine ( - 2023-2 5 season) 2024 RSV Vaccine 60 years and old er and Patients (1 - 1-dose 75+ series) 2038 Hepatitis B Vaccines Aged Out No long er eligible based on patient's age to complete this topic Pneumococcal Vaccine: Pediat martínez (0-5 Years) and At-Risk Patients (6 to 49 Years) Aged Out No longer eligible b ased on patient's age to complete this topic
--- OUTSIDE RECORDS SUMMARY | 2025-01-12 14:21 | XMS_ITS | Encounter Summary ---
Author Organization [employer] Address [address] [place] [address] Care Team Providers Care Jig And Fixture Repairer Name Role Phone Richie Fam MD Primary Care Prov ider Encounter Details Date Type Department Care Team (Late st Contact Info) Description 03/03/2024 Orders Only [facility] MEDICINE [address] [place] [address] ProviderPhillip MD Social History Tobacco Use Types Packs/Day Years [...] on file documented as of this encounter Procedures Procedure Name Priority Date/Time Associated Diagnosis Comments COLONOSCOPY Routine 01/15/2022 12:01 PM EST documented in this encounter Results * Hm Colonoscopy (01/15/2022 12:01 PM EST) Colonoscopy Normal Normal us Historical Provider HEALTH MAINTENANCE Edited Result - Final documented in this encounter Visit Diagnoses Not on filedocumented in this encounter Additional Health Concerns Assessment Noted Time PHQ-9 Depression Total Score: 0 04/01/20 23 1:50 PM EDT documented as of this encounter Care Teams Jig And Fixture Repairer Relationship Specialty Start Date End Date Richie Fam MD [address] [place] [id number] PCP - General Internal Medicine 10/21/20 documented as of this encounter
--- OUTSIDE RECORDS SUMMARY | 2025-01-12 14:21 | XMS_ITS | Encounter Summary ---
Author Organization [employer] Address [address] [facility] 7[address] [place] [address] Care Team Providers Care Well Service Floor Worker Name Role Phone Richie Fam MD Primary Care Prov ider Encounter Details Date Type Department Care Team (Late st Contact Info) Description 12/22/2022 Telephone C [facility] [address] [place], [place] [phone] Richie Fam MD [address] [place] [address] Social History Tobacco Use Types Packs/Day Years [...] AM EST documented as of this encounter Miscellaneous Notes * Telephone Encounter - Swathi Cardenas - 12/22/2022 1:40 PM EST Tc from pt calling regarding status on her ct scan order . Pt states has called sever times due to [facility] in [place] not receiving fax . Shirt Bander re faxed order to [phone] . (Fax # ptprovided ) . Please call pt to clarify . documented in this encounter Plan of Treatment Not on file documented as of this encounter Visit Diagnoses Not on filedocumented in this encounter Care Teams Well Service Floor Worker Relationship Specialty Start Date End Date Richie Fam MD [address] [place] [id number] PCP - General Internal Medicine 10/21/20 documented as of this encounter
--- OUTSIDE RECORDS SUMMARY | 2025-01-12 14:21 | XMS_ITS | Encounter Summary ---
Author Organization [employer] Address [address] [facility] 7 [place] [address] Care Team Providers Care Plastic Duplicator Name Role Phone Richie Fam MD Primary Care Prov ider Reason for Visit * Reason Onset Date Comments Lab Orders 05/29/2024 Encounter Details Date Type Department Care Team ([facility] st Contact Info) Description 05/29/2024 Telephone [facility] MEDICINE [address] [place] [address] Richie Fam MD [address] [place] [address] Lab Orders Social History Tobacco Use Types Packs/Day Years [...] encounter Miscellaneous Notes * Telephone Encounter - Becka Maza - 05/29/2024 3:30 PM EDT Tc from pt requesting routine lab orders. Stated she supposed to do labs ever 3 months. documented in this encounter Plan of Treatment Not on file documented as of this encounter Visit Diagnoses Not on filedocumented in this encounter Additional Health Concerns Assessment Noted Time PHQ-9 Depression Total Score: 0 04/01/20 23 1:50 PM EDT documented as of this encounter Care Teams Plastic Duplicator Relationship Specialty Start Date End Date Richie Fam MD [address] [place] [id number] PCP - General Internal Medicine 10/21/20 documented as of this encounter
== END 2025-01-12 12:05 | disposition home or self-care (01) ==
LOC: HO.CHCLDS 12:04
PROVIDERS: Visit Provider Internal Medicine
DX: E03.9 Hypothyroidism, unspecified (principal)
CPT/HCPCS: 36415; 84443

== ENCOUNTER 2025-02-13 11:46 | Outpatient (REF) | payer OTHER, SELFPAY ==
--- OUTSIDE RECORDS SUMMARY | 2025-02-13 14:10 | XMS_ITS | Data Portability ---
Author Organization [employer] Address [address] [place] [phone] Care Team Providers Care Complex Director Name Role Phone [facility] Referring Provider [facility] Referring Provider Assessment No assessment recorded. Plan [...] Name and Address Organization Details Recorded Time 7312 morphine medicatio n Not available Not available [...] % 98 % 18 /min 97.1 [degF] 11736.3 28 g 85 /min 122 mm[Hg] 66 [...] [id number] Jazz Maxwell MD Main - [facility] [address] [place] [phone] 02/22/2023 11:54:57 02/24/2023 10:07:54 Viral upper respiratory tract infection [id number] J06.9 57 year old female being evaluated [...] Jones Member ID Guarantor Name 02/22/2023 1 [facility] - DOS PRIOR TO 2023 - DUAL ELIGIBLE (MEDICARE REPLACEMENT/ADV ANTAGE - HMO) Jazlyn Chin [id number] Jazlyn Velasqueztiffany Notes Date Note Type Note [...] and negative. pt unable to come into [facility]. Agrees to [facility] referral for assessment. .................. .................. .................. .................. .................. .................. .................. ............... CRC Nursing Assessment: Comments: CRC RN DID NOT NEED FURTHER INFO < MICKY Maxwell MD [address] [facility],[address], [place], [address], [place] [employer] 02/22/2023 12:00:55 OBGyn Episode No OBEpisode recorded.
--- OUTSIDE RECORDS SUMMARY | 2025-02-13 14:10 | XMS_ITS | Clinical Summary ---
Author Organization [facility] Address [address] [place] [address] Care Team Providers Care Field Crop Farmworker Name Role Phone Unavailable Primary Care Provider [...]
--- OUTSIDE RECORDS SUMMARY | 2025-02-13 14:10 | XMS_ITS | Encounter Summary ---
Author Organization [employer] Address [address] [place] [address] [address] [place] [address] Care Team Providers Care Chain Carrier Name Role Phone Richie Fam MD Primary Care Prov ider Reason for Visit * Reason Onset Date Comments Nurse Triage 02/12/2025 Encounter Details Date Type Department Care Team ([facility] st Contact Info) Description 02/12/2025 Telephone [facility] CHC MED & PEDS [address] [place] [address] Richie Fam MD [address] [place] [address] Nurse Triage Social History Tobacco Use Types [...] encounter Miscellaneous Notes * Telephone Encounter - Thao Hillman RN - 02/12/2025 11:05 AM EDT Call returned to Jazlyn Chin to triage below. Pt states seen by [facility] on Wednesday for follow up. Was advised that may be GI. Per pt pain is still intermittent. Per pt pain is periumbilical. States has had issues with intestines in past. Pt denies any constipation or diarrhea. Pt wants PCP office follow up as has GI but for other issues not current concern. Pt agrees to sick onsite tomorrow in office with team provider. Reviewed home care advise, ER precautions and reasons to call back. Protocol Used: Abdominal Pain - Female (Adult) Protocol-Based Disposition: See in Office or Video Visit Today or Tomorrow Future Appointments Date Time Provider Department Center 02/13/2025 11:15 AM Lilliam Collazo MD [facility] Insurance verified as active per Real Time Eligibility in [facility]. Positive Triage Question: * Mild pain (e.g., does not interfere with normal activities) and pain comes and goes (cramps) lasts > 48 hours (Exception: This same abdominal pain is a chronic symptom recurrent or ongoing AND present > 4 weeks.) * All higher-acuity triage questions were negative Care Advice Discussed: * Reassurance and Education - Mild Stomachache * Rest * Reasons To Call Back - Severe pain lasts over 1 hour - Constant pain lasts over 2 hours - You become worse * Telephone Encounter - Thao Hillman RN - 02/12/2025 10:34 AM EDT Call x 2 to patient to follow up on below. No answer, LVM to return call to [facility] triage line. Will also send portal message to return call. * Telephone Encounter - Laura Thomas - 02/12/2025 10:24 AM EDT Tc from pt returning phone call. * Telephone Encounter - Thao Hillman RN - 02/12/2025 9:30 AM EDT Emergency Room Name and Visit Date: [facility] 02/01/2025 Discharge Dx: Uterine Prolapse Discharge Medications: None Follow up Instructions: Follow up with [facility] provider YAJAIRA. Call returned to Jazlyn Chin for triage below. No answer LVM to return call to [facility] triage line [phone]. * Telephone Encounter - Swathi Cardenas - 02/12/2025 9:24 AM EDT Patient calling to report ED visit on : Date: 01/31/25 Hospital: [facility] Seen for: abdominal pain, back pain and swelling Symptomatic Yes *if yes message should go to Triage Patient advised will forward to team nurse for follow up documented in this encounter Plan of Treatment Upcoming Encounters Date Type Department Care Team (Late st Contact Info) Description 03/07/2025 3:15 PM EDT Office Visit [facility] MED & PEDS [address] [place] [address] Richie Fam MD [address] [place] [address] documented as of this encounter Visit Diagnoses Not on filedocumented in this encounter Additional Health Concerns Assessment Noted Time PHQ-9 Depression Total Score: 0 08/30/20 24 9:27 AM EDT documented as of this encounter Care Teams Chain Carrier Relationship Specialty Start Date End Date Richie Fam MD [address] [place] [address] PCP - General Internal Medicine 10/21/20 documented as of this encounter
--- OUTSIDE RECORDS SUMMARY | 2025-02-13 14:10 | XMS_ITS | Encounter Summary ---
Author Organization [employer] Address [address] [facility] 7t [place] [address] Care Team Providers Care Crop Grain Or Livestock Farmer Name Role Phone Richie Fam MD Primary Care Prov ider Reason for Referral * Imaging (Routine) - Pending Review Specialty Diagnoses / Procedures Referred By Contac t Referred To Contact Radiology Diagnoses Constipation, unspecified constipation type EPPERSON (nonalcoholic steatohepatitis) Procedures CT abdomen w/o Contrast Lilliam Collazo MD [address] [place] [address] Phone: tel: fax: [facility] [address] [facility], [address] [address] Phone: tel: fax: Referral ID Status Reason Start Date Expiration Date V isits Requested Visits Authorized [id number] Pending Review 02/13/2025 02/13/2026 1 1 Encounter Details Date Type Department Care Team (Latest Contact Info) Description 02/13/2025 11:15 AM EDT Office Visit [facility] MED & PEDS [address] [place] [address] Lilliam Collazo MD [address] [place], [place] [phone] Constipation, unspecified constipation type (Primary Dx); EPPERSON (nonalcoholic steatohepatitis); Mixed hyperlipidemia Social History Tobacco Use Types [...] AM EDT documented as of this encounter Last Filed Vital Signs Vital Sign Reading Time Taken Comments Blood Pressure 133/70 02/13/2025 11:15 AM EDT Pulse 72 02/13/2025 11:15 AM EDT Temperature 36.8 ??C (98.2 ??F) 02/13/2025 1 1:15 AM EDT Respiratory Rate 20 02/13/2025 11:1 5 AM EDT Oxygen Saturation 98% 02/13/2025 11: 15 AM EDT Inhaled Oxygen Concentration - - Weight 60.7 kg (133 lb 12.8 oz) 025 11:15 AM EDT Height 149.9 cm (4' 11 ) 02/13/2025 11: 15 AM EDT Body Mass Index 27.02 02/13/2025 11:15 AM EDT documented in this encounter Progress Notes * Lilliam Collazo MD - 02/13/2025 11:15 AM EDT Subjective Patient ID: Jazlyn Chin is a 59 y.o. female who presents for No chief complaint on file.. She had a syncopal episode at [facility] She felt back pain and syncope ER found prolapse uterus Review of Systems Constitutional: Negative. Respiratory: Negative. Negative for shortness of breath. Cardiovascular: Negative for chest pain and palpitations. Gastrointestinal: Negative. Genitourinary: Negative. Musculoskeletal: Negative for neck pain. Neurological: Negative for headaches. Objective Physical Exam Constitutional: Appearance: Normal appearance. Cardiovascular: Rate and Rhythm: Normal rate and regular rhythm. Pulses: Normal pulses. Heart sounds: Normal heart sounds. Pulmonary: Effort: Pulmonary effort is normal. Abdominal: General: Abdomen is flat. Neurological: Mental Status: She is alert. Assessment/Plan Diagnoses and all orders for this visit: Constipation, unspecified constipation type Comments: Advised to cont Miralax Advised to increase fluid intake Pt has an appt with GI Orders: - CT abdomen w/o Contrast; Future EPPERSON (nonalcoholic steatohepatitis) Comments: CT abdomen ordered Orders: - CT abdomen w/o Contrast; Future Mixed hyperlipidemia Advised to maintain a low-fat, low-cholesterol diet. Counseled regarding importance of weight loss. Counseled re: potential co-morbidities including cardiovascular disease. - Basic Metabolic Panel; Future - Lipid Panel, Standard; Future - Hepatic Function Panel; Future documented in this encounter Plan of Treatment Upcoming Encounters Date Type Department Care Team (Late st Contact Info) Description 03/07/2025 3:15 PM EDT Office Visit [facility]S [address] [place] [address] Richie Fam MD [address] [place] [address] Scheduled Orders Name Type Priority Associated Diagnoses Orde r Schedule CT abdomen w/o Contrast Imaging Routine Constipation, unspecified constipation type EPPERSON (nonalcoholic steatohepatitis) Expected: 02/13/2025, Expires: 02/13/2026 Basic Metabolic Panel Lab Routine Mixed hyperlipidemia Expected: 02/13/2025 (Approximate), Expires: 02/13/2026 Lipid Panel, Standard Lab Routine Mixed hyperlipidemia Expected: 02/13/2025 (Approximate), Expires: 02/13/2026 Hepatic Function Panel Lab Routine Mixed hyperlipidemia Expected: 02/13/2025 (Approximate), Expires: 02/13/2026 documented as of this encounter Visit Diagnoses Diagnosis Constipation, unspecified constipation type- Primary EPPERSON (nonalcoholic steatohepatitis) Other chronic nonalcoholic liver disease Mixed hyperlipidemia documented in this encounter Additional Health Concerns Assessment Noted Time PHQ-9 Depression Total Score: 0 08/30/20 24 9:27 AM EDT documented as of this encounter Care Teams Crop Grain Or Livestock Farmer Relationship Specialty Start Date End Date Richie Fam MD [address] [place] [id number] PCP - General Internal Medicine 10/21/20 documented as of this encounter
--- OUTSIDE RECORDS SUMMARY | 2025-02-13 14:10 | XMS_ITS ---
Author Name [employer] Organization Unknown Encounters Encounter Type Encounter Reason Primary Diagnosis Location Date Ambulatory Contact with and (suspected) exposure to covid-19 [employer] 08/25/2021 Care Team Organization Name Specialty Phone Email Start Date End Da te [employer] 08/26/2021 07/03/2024 [employer] 08/25/2021 08/25/2021
--- OUTSIDE RECORDS SUMMARY | 2025-02-13 14:10 | XMS_ITS | Clinical Summary ---
Author Organization [facility] Address [address] [place] [address] Care Team Providers Care Catheterization Laboratory Technician Name Role Phone Stella Pratt MD Primary [...] age to complete this topic Care Teams Catheterization Laboratory Technician Relationship Specialty Start Date End Date Stella Pratt MD PCP - General Internal Medicine 12/20/17
--- OUTSIDE RECORDS SUMMARY | 2025-02-13 14:10 | XMS_ITS | Encounter Summary ---
Author Organization [employer] Address [address] [place] [address] 7 [place] [address] Care Team Providers Care Specialty Transformer Assembler Name Role Phone Richie Fam MD Primary Care Prov ider Encounter Details Date Type Department Care Team ([facility] Contact Info) Description 12/21/2022 Telephone [facility] MEDICINE [address] [place], [place] [phone] Richie Fam MD [address] [place], [place] [phone] Social History Tobacco Use Types Packs/Day Years [...] as of this encounter Plan of Treatment Upcoming Encounters Date Type Department Care Team ([facility] Contact Info) Description 03/07/2025 3:15 PM EDT Office Visit [facility] MED & PEDS [address] [place], [place] [phone] Richie Fam MD [address] [place] [address] documented as of this encounter Visit Diagnoses Not on filedocumented in this encounter Care Teams Specialty Transformer Assembler Relationship Specialty Start Date End Date Richie Fam MD [address] [place] [phone] PCP - General Internal Medicine 10/21/20 documented as of this encounter
--- OUTSIDE RECORDS SUMMARY | 2025-02-13 14:10 | XMS_ITS | Encounter Summary ---
Author Organization [employer] Address [address] [facility] 7 [place] [address] Care Team Providers Care Postal Service Window Clerk Name Role Phone Richie Fam MD Primary Care Prov ider Reason for Visit * Reason Onset Date Comments Lab Orders 05/29/2024 Encounter Details Date Type Department Care Team ([facility] st Contact Info) Description 05/29/2024 Telephone [facility] MEDICINE [address] [place] [address] Richie Fam MD [address] [place] [address] Lab Orders Social History Tobacco Use Types [...] Description 03/07/2025 3:15 PM EDT Office Visit [facility] MED & PEDS [address] [place] [address] Richie Fam MD [address] [place] [address] documented as of this encounter Visit Diagnoses Not on filedocumented in this encounter Additional Health Concerns Assessment Noted Time PHQ-9 Depression Total Score: 0 04/01/20 23 1:50 PM EDT documented as of this encounter Care Teams Postal Service Window Clerk Relationship Specialty Start Date End Date Richie Fam MD [address] [place] [address] PCP - General Internal Medicine 10/21/20 documented as of this encounter
--- OUTSIDE RECORDS SUMMARY | 2025-02-13 14:10 | XMS_ITS | Encounter Summary ---
Author Organization [employer] Address [address] [place] [address] 7 [place] [address] Care Team Providers Care Supervisor Brew House Name Role Phone Richie Fam MD Primary Care Prov ider Reason for Visit * Reason Comments Med Refill Encounter Details Date Type Department Care Team ([facility] Contact Info) Description 12/24/2022 Refill [facility] CH[facility] MED & PEDS [address] [place] [address] Richie Fam MD [address] [place] [address] Mixed hyperlipidemia Social History Tobacco Use Types [...] Upcoming Encounters Date Type Department Care Team ([facility] Contact Info) Description 03/07/2025 3:15 PM EDT Office Visit [facility] MED & PEDS [address] [place] [address] Richie Fam MD [address] [place] [address] documented as of this encounter Visit Diagnoses Diagnosis Mixed hyperlipidemia documented in this encounter Care Teams Supervisor Brew House Relationship Specialty Start Date End Date Richie Fam MD [address] [place] [address] PCP - General Internal Medicine 10/21/20 documented as of this encounter
--- OUTSIDE RECORDS SUMMARY | 2025-02-13 14:10 | XMS_ITS | Encounter Summary ---
Author Organization [employer] Address [address] [facility] [address] 7t [place] [address] Care Team Providers Care Superintendent Drilling Name Role Phone Richie Fam MD Primary Care Prov ider Encounter Details Date Type Department Care Team (Late st Contact Info) Description 03/03/2024 Orders Only [facility] MEDICINE [address] [place] [address] ProviderPhillip MD Social History Tobacco Use Types [...] Description 03/07/2025 3:15 PM EDT Office Visit [facility] MED & PEDS [address] [place] [address] Richie Fam MD [address] [place] [address] documented as of this encounter Procedures Procedure [...] documented as of this encounter Care Teams Superintendent Drilling Relationship Specialty Start Date End Date Richie Fam MD [address] [place] [address] PCP - General Internal Medicine 10/21/20 documented as of this encounter
--- OUTSIDE RECORDS SUMMARY | 2025-02-13 14:10 | XMS_ITS | Encounter Summary ---
Author Organization [employer] Address [address] [facility] 7t [place] [address] Care Team Providers Care Conservation Educator Name Role Phone Richie Fam MD Primary Care Prov ider Reason for Visit * Reason Comments Med Refill Encounter Details Date Type Department Care Team ([facility] st Contact Info) Description 09/02/2024 Refill [facility] CHC MED & PEDS [address] [place], [place] [phone] Richie Fam MD [address] [place] [address] Mixed hyperlipidemia Social History Tobacco Use Types [...] Upcoming Encounters Date Type Department Care Team ([facility] st Contact Info) Description 03/07/2025 3:15 PM EDT Office Visit [facility] MED & PEDS [address] [place] [address] Richie Fam MD [address] [place] [address] documented as of this encounter Visit Diagnoses Diagnosis Mixed hyperlipidemia documented in this encounter Additional Health Concerns Assessment Noted Time PHQ-9 Depression Total Score: 0 08/30/20 24 9:27 AM EDT documented as of this encounter Care Teams Conservation Educator Relationship Specialty Start Date End Date Richie Fam MD [address] [place] [address] PCP - General Internal Medicine 10/21/20 documented as of this encounter
--- OUTSIDE RECORDS SUMMARY | 2025-02-13 14:10 | XMS_ITS | Encounter Summary ---
Author Organization [employer] Address [address] [place] [address] 7 [place] [address] Care Team Providers Care Infant Babysitter Name Role Phone Richie Fam MD Primary Care Prov ider Reason for Visit * Reason Onset Date Comments Results 01/19/2025 Lab Orders 01/19/2025 Encounter Details Date Type Department Care Team ([facility] st Contact Info) Description 01/19/2025 Telephone [facility] CHC MED & PEDS [address] [place], [place] [phone] Richie Fam MD [address] [place] [address] Results; Lab Orders Social History Tobacco Use Types [...] is your housing situation today? I have marylambert dominguez 09/07/[address] you [...] * Telephone Encounter - Swathi Cardenas - 01/19/2025 11:59 AM EST TC from pt requesting call back regarding Results. Type of results: labs Date when done: 01/12/25 Facility: [facility] Pt would also like to discuss concern about lab orders. Believes had couple labs that we not done. documented in this encounter Plan of Treatment Upcoming Encounters Date Type Department Care Team (Late st Contact Info) Description 03/07/2025 3:15 PM EDT Office Visit [facility] MED & PEDS [address] [place] [address] Richie Fam MD [address] [place] [address] documented as of this encounter Visit Diagnoses Not on filedocumented in this encounter Additional Health Concerns Assessment Noted Time PHQ-9 Depression Total Score: 0 08/30/20 24 9:27 AM EDT documented as of this encounter Care Teams Infant Babysitter Relationship Specialty Start Date End Date Richie Fam MD [address] [place] [address] PCP - General Internal Medicine 10/21/20 documented as of this encounter
--- OUTSIDE RECORDS SUMMARY | 2025-02-13 14:10 | XMS_ITS | Encounter Summary ---
Author Organization [employer] Address [address] [facility] 7 [place] [address] Care Team Providers Care Telephony Engineer Name Role Phone Richie Fam MD Primary Care Prov ider Reason for Visit * Reason Onset Date Comments Nurse Triage 07/25/2024 Encounter Details Date Type Department Care Team ([facility] st Contact Info) Description 07/25/2024 Telephone [facility] MEDICINE [address] [place] [address] Richie Fam MD [address] [place] [address] Nurse Triage Social History Tobacco Use Types [...] encounter Miscellaneous Notes * Telephone Encounter - Mandy Brasher RN - 07/25/2024 10:50 AM EDT [...] Upcoming Encounters Date Type Department Care Team ([facility] st Contact Info) Description 03/07/2025 3:15 PM EDT Office Visit [facility] MED & PEDS [address] [place] [address] Richie Fam MD [address] [place] [address] documented as of this encounter Visit Diagnoses Not on filedocumented in this encounter Additional Health Concerns Assessment Noted Time PHQ-9 Depression Total Score: 0 04/01/20 23 1:50 PM EDT documented as of this encounter Care Teams Telephony Engineer Relationship Specialty Start Date End Date Richie Fam MD [address] [place] [address] PCP - General Internal Medicine 10/21/20 documented as of this encounter
--- OUTSIDE RECORDS SUMMARY | 2025-02-13 14:10 | XMS_ITS | Clinical Summary ---
Author Organization [employer] Address [address] [place] [address] 7t [place] [address] Care Team Providers Care Primary Care Pediatrician Name Role Phone Richie Fam MD Primary Care Prov ider Allergies Active Allergy Reactions Criticality Noted Date Comments Morphine Itching High 05/28/2015 Procaine Palpitations,Shortne ss of breath High 10/26/2018 Other reaction(s): Procaine, Procaine Medications triamcinolone (Kenalog) 0.5 % cream APPLY THIN LAYER TOPICALLY TO THE AFFECTED AREA TWICE DAILY FOR 7 DAYS 08/25/20 22 Active polyethylene glycol, PEG, 3350 (MiraLax) 17 GM/SCOOP powder Take 17 g by mouth. 09/22/20 22 Active omeprazole (PriLOSEC) [address] capsule TAKE 1 CAPSULE BY MOUTH EVERY DAY 30 MINUTES BEFORE BREAKFAST 12/08/19 23 Active loratadine (Claritin) 10 MG tablet Take 10 mg by mouth in the morning. 12/08/19 23 Active ketotifen (Zaditor) 0.025 % ophthalmic solution 12/08/19 23 Active fluticasone (Flonase) 50 MCG/ACT nasal spray INSTILL 1 SPRAY IN EACH NOSTRIL ONCE A DAY 12/07/19 23 Active famotidine (Pepcid) 40 MG tablet Take 1 tablet by mouth at bed time. 09/18/20 22 Active ibuprofen 400 MG tabletIndications: Pharyngitis, unspecified etiology Take 1 tablet (400 mg) by mouth if needed in the morning, at noon, in the evening, and at bedtime for mild pain. 30 tablet 12/17/19 23 Active albuterol 108 (90 Base) MCG/ACT inhaler Inhale 2 puffs every 4 (four) hours if needed for shortness of breath. 18 g 1 02/26/20 23 Active hydrOXYzine pamoate (Vistaril) 25 MG capsule TAKE 1 CAPSULE BY MOUTH TWICE DAILY NEEDED FOR ANXIETY OR SLEEP 30 capsule 2 11/09/20 23 Active tretinoin (Retin-A) 0.025 % creamIndications:M ilium cyst Apply topically at bedtime. 45 g 11 03/28/20 24 025 Active sucralfate (Carafate) 1 g tablet TAKE 1 TABLET(1 GRAM) BY MOUTH BEFORE BREAKFAST AND BEFORE THE EVENING MEAL 60 tablet 09/29/20 24 Active simvastatin (Zocor) 40 MG tabletIndications: Mixed hyperlipidemia TAKE 1 TABLET(40 MG) BY MOUTH IN THE EVENING 90 tablet 3 12/01/19 25 Active levothyroxine (Synthroid, Levoxyl) 50 MCG tablet Take 1 tablet (50 mcg) by mouth before breakfast. 30 tablet 11 08/30/20 24 025 Discontin ued(Other ) Active Problems Problem Noted Date Diagnosed Date [...] (12/17/2022): Added automatically from request for surgery [id number] Fibromyalgia 06/14/2017 Endometriosis determined by laparoscopy 06/14/20 [...] Encounters Date Type Department Care Team Description 02/13/2025 11:15 AM EDT Office Visit [facility] MED & PEDS [address] [place] [address] Lilliam Collazo MD Constipation, unspecified constipation type (Primary Dx); EPPERSON (nonalcoholic steatohepatitis); Mixed hyperlipidemia 02/13/2025 Travel 02/12/2025 Telephone [facility] MED & PEDS [address] [place] [address] Richie Fam MD Nurse Triage 01/19/2025 Telephone [facility] MED & PEDS [address] [place] [address] Gosia Sinclair, RN Results 01/19/2025 Telephone [facility] MED & PEDS [address] [place] [address] Richie Fam MD Results; Lab Orders 11/30/2024 Refill [facility] MED & PEDS [address] [place] [address] Richie Fam MD Mixed hyperlipidemia from Last [...] Mass Index 27.02 02/13/2025 11:15 AM EDT Plan of Treatment Upcoming Encounters Date Type Department Care Team (Late st Contact Info) Description 03/07/2025 3:15 PM EDT Office Visit [facility] MED & PEDS [address] [place] [address] Richie Fam MD [address] [place] [address] Health Maintenance Due Date Last Done Comments [...] Procedure Name Priority Date/Time Associated Diagnosis Comments TSH W/REFLEX TO FT4 Routine 01/12/2025 1 2:05 PM EST Acquired hypothyroidism MAMMOGRAPHY Routine 09/17/2023 HEPATITIS PANEL, GENERAL Routine 06/03/2023 11:23 AM EDT RUQ pain PAP/HPV Routine 02/03/2023 COLONOSCOPY Routine 01/15/2022 12:01 PM EST HIV 1/2 ANTIGEN/ANTIBODY, FOURTH GENERATION W/RFL Routine 10/28/2020 10:29 AM EST from Last 3 Months or Most Recently Relevant to Health Maintenance Results * TSH W/Reflex to FT4 (01/12/2025 12:05 PM EST) TSH reflex Free T4 1.00 0.32 - 4.0 uIU/mL [facility] Blood Venous blood specimen / Unknown 01/12/2025 12:05 PM EST 01/12/2025 2:33 PM EST Richie Nava MD LAB BLOOD ORDERABL ES Final Result Performing Organization Address [facility]/ZIP Co de Phone Number [facility] [address] [place] [phone] * Mammography (09/17/2023) Mammogram Bi-rads 2 Anatomical Region Laterality Modality Other Phillip Miner MD HEALTH MAINTENANCE Final Result * Hepatitis A,B,C Profile (06/03/2023 11:23 AM EDT) Pathologist [facility] Hepatitis A IgM Nonreactive Nonreactive [facility] Comment:IgM antibodies to GUILLORY V not detected; does not exclude earlyacute or recovered HAV infection. ~Hepatitis B Surface Antibody NONREACTIVE Nonreactive [facility] Comment:Nonreactive: < 8.00 mIU/mL Hepatitis B Core Antibody Nonreactive Nonreactive [facility] Hepatitis C Antibody Nonreactive Nonreactive [facility] Comment:Antibodies to HCV no t detected; does not exclude early acuteHCV infection. Hepatitis B Surface Ag Negative Negative [facility] Blood 06/03/2023 11:2 3 AM EDT 06/03/2023 2:04 PM EDT Lorelei FIGUEROAP LAB BLOOD ORDERABLES Final Res ult Performing Organization Address [facility]/ZIP Co de Phone Number [facility] [address] [place] [phone] * Pap Smear (02/03/2023) Pap Negative for intraephithelial lesion or malignancy Negative for intraephithelial lesion or malignancy, Other HPV Undetected Undetected, Indeterminate, Quantitative, Not Detected Historical Provider HEALTH MAINTENANCE Final Result * Colonoscopy (01/15/2022 12:01 PM EST) Pathologist [facility] Colonoscopy Normal Normal Historical Provider [facility] Edited Result - Final * HIV 1/2 ANTIGEN/ANTIBODY,FOURTH GENERATION W/RFL (10/28/2020 10:29 AM EST) Pathologist [facility] HIV-1/2 ANTIGEN AND ANTIBODIES, 4TH GENERATION W/ REFLEX NON-REACT ALIS NON-REACT ALIS [facility] Comment: HIV-1 antigen and HIV-1/HIV-2 [...] ? For additional information please refer to http://education.[employer]/faq/ZSF855 (This link is being provided for informational/ educational purposes only.) ? The performance of this assay has not been clinically validated in patients less than 2 years old. ?? 10/28/2020 10:2 9 AM EST Richie Nava MD LAB BLOOD ORDERABL ES Final Result [facility] [address] from Last 3 Months or Most Recently Relevant to Health Maintenance Insurance [facility] Member Subscriber Plan / Payer (Ef fective 2021-Present) Name:Jazlyn Street Relation to Subscriber:Self Name:Mancuso RonJazlyn allen Payer ID:Not on file Group ID:[id number] Type:Not on file Address: [place] [id number] Care Teams Primary Care Pediatrician Relationship Specialty Start Date End Date Richie Fam MD [address] [place] [phone] PCP - General Internal Medicine 10/21/20
--- OUTSIDE RECORDS SUMMARY | 2025-02-13 14:10 | XMS_ITS | Encounter Summary ---
Author Organization [employer] Address [address] [facility] 7t [place] [address] Care Team Providers Care Self Pay Specialist Name Role Phone Richie Fam MD Primary Care Prov ider Encounter Details Date Type Department Care Team (Latest Contact Info) Description 02/13/2025 Travel Social History Tobacco Use Types Packs/Day Years [...] 03/07/2025 3:15 PM EDT Office Visit [facility] MED & PEDS [address] [place] [address] Richie Fam MD [address] [place] [address] documented as of this encounter Visit Diagnoses Not on filedocumented in this encounter Additional Health Concerns Assessment Noted Time PHQ-9 Depression Total Score: 0 08/30/20 24 9:27 AM EDT documented as of this encounter Care Teams Self Pay Specialist Relationship Specialty Start Date End Date Richie Fam MD [address] [place] [address] PCP - General Internal Medicine 10/21/20 documented as of this encounter
--- OUTSIDE RECORDS SUMMARY | 2025-02-13 14:10 | XMS_ITS | Clinical Summary ---
Author Organization [facility] Address [id number] [place] [id number] Care Team Providers Care Rotary Drier Operator Name Role Phone Stella Pratt MD Primary Care Provider [phone] Medical History Medical History Date Comments Hypothyroid 06/14/2017 DX:Hypothyroid Hypercholesteremia 06/14/2017 DX:Hyperchole steremia History of depression 06/14/2017 DX:History of depression; COMMENT: With panic attacks History of asthma 06/14/2017 DX:History of asthma Dysphagia 06/14/2017 DX:Dysphagia Endometriosis determined by laparoscopy DX:Endometriosis determined by laparoscopy; COMMENT: 2006 Bowel perforation ([facility]) 2006 DX:B owel perforation ([facility]); COMMENT: complication of laparoscoy Family History Medical [...] - 2023-2 5 season) 2024 Influenza Vaccine (Season Ended) 2025 RSV Immunization Patients 60 + Years Old [...] age to complete this topic Care Teams Rotary Drier Operator Relationship Specialty Start Date End Date Stella Pratt MD PCP - General Internal Medicine 03/31/17
--- OUTSIDE RECORDS SUMMARY | 2025-02-13 14:10 | XMS_ITS | Encounter Summary ---
Author Organization [employer] Address [address] [facility] 7 [place] [address] Care Team Providers Care Drag Out Man Name Role Phone Richie Fam MD Primary Care Prov ider Reason for Visit * Reason Onset Date Comments Created In Error 07/25/2024 Encounter Details Date Type Department Care Team ([facility] st Contact Info) Description 07/25/2024 Telephone [facility] MEDICINE [address] [place] [address] Richie Fam MD [address] [place] [address] Created In Error Social History Tobacco Use [...] 03/07/2025 3:15 PM EDT Office Visit [facility] MED & PEDS [address] [place] [address] Richie Fam MD [address] [place] [address] documented as of this encounter Visit Diagnoses Not on filedocumented in this encounter Additional Health Concerns Assessment Noted Time PHQ-9 Depression Total Score: 0 04/01/20 23 1:50 PM EDT documented as of this encounter Care Teams Drag Out Man Relationship Specialty Start Date End Date Richie Fam MD [address] [place] [address] PCP - General Internal Medicine 10/21/20 documented as of this encounter
--- OUTSIDE RECORDS SUMMARY | 2025-02-13 14:10 | XMS_ITS | Encounter Summary ---
Author Organization [employer] Address [address] [place] [address] 7 [place] [address] Care Team Providers Care Housekeeper Manager Name Role Phone Richie Fam MD Primary Care Prov ider Encounter Details Date Type Department Care Team ([facility] Contact Info) Description 07/15/2023 Orders Only [facility] MED & PEDS [address] [place] [address] Richie Fam MD [address] [place] [address] Social History Tobacco Use Types Packs/Day Years [...] Upcoming Encounters Date Type Department Care Team ([facility] Contact Info) Description 03/07/2025 3:15 PM EDT Office Visit [facility] MED & PEDS [address] [place] [address] Richie Fam MD [address] [place], [place] [phone] documented as of this encounter Visit Diagnoses Not on filedocumented in this encounter Additional Health Concerns Assessment Noted Time PHQ-9 Depression Total Score: 0 04/01/20 23 1:50 PM EDT documented as of this encounter Care Teams Housekeeper Manager Relationship Specialty Start Date End Date Richie Fam MD [address] [place] [address] PCP - General Internal Medicine 10/21/20 documented as of this encounter
--- OUTSIDE RECORDS SUMMARY | 2025-02-13 14:10 | XMS_ITS | Encounter Summary ---
Author Organization [employer] Address 75 [facility] 7t [place] [address] Care Team Providers Care Wrecking Mechanic Name Role Phone Richie Fam MD Primary Care Prov ider Encounter Details Date Type Department Care Team (Late st Contact Info) Description 12/22/2022 Telephone [facility] MED & PEDS [address] [place], [place] [phone] Richie Fam MD [address] [place] [address] Social History Tobacco Use Types Packs/Day Years [...] sever times due to [facility] [place] not receiving fax . Clinical Appeals Auditor re faxed order to [phone] . (Fax # [phone] ) . Please call pt to clarify . documented in this encounter Plan of Treatment Upcoming Encounters Date Type Department Care Team ([facility] st Contact Info) Description 03/07/2025 3:15 PM EDT Office Visit [facility] MED & PEDS [address] [place] [address] Richie Fam MD [address] [place] [address] documented as of this encounter Visit Diagnoses Not on filedocumented in this encounter Care Teams Wrecking Mechanic Relationship Specialty Start Date End Date Richie Fam MD [address] [place] [address] PCP - General Internal Medicine 10/21/20 documented as of this encounter
--- OUTSIDE RECORDS SUMMARY | 2025-02-13 14:10 | XMS_ITS | Encounter Summary ---
Author Organization [employer] Address 75 [facility] 7 [place] [address] Care Team Providers Care Transition Mgr Rn Name Role Phone Richie Fam MD Primary Care Prov ider Reason for Visit * Reason Onset Date Comments Call Back Request 08/14/2024 Encounter Details Date Type Department Care Team ([facility] st Contact Info) Description 08/14/2024 Telephone [facility] MEDICINE [address] [place] [address] Richie Fam MD [address] [place] [address] Call Back Request Social History Tobacco Use [...] the labs as requested on 07/27 [facility] and was told there is no results in the system would like to know what to do documented in this encounter Plan of Treatment Upcoming Encounters Date Type Department Care Team (Late st Contact Info) Description 03/07/2025 3:15 PM EDT Office Visit [facility] MED & PEDS [address] [place] [address] Richie Fam MD [address] [place] [address] documented as of this encounter Visit Diagnoses Not on filedocumented in this encounter Additional Health Concerns Assessment Noted Time PHQ-9 Depression Total Score: 0 04/01/20 23 1:50 PM EDT documented as of this encounter Care Teams Transition Mgr Rn Relationship Specialty Start Date End Date Richie Fam MD [address] [place] [address] PCP - General Internal Medicine 10/21/20 documented as of this encounter
[2025-02-13 17:22] LABS: Alanine Aminotransferase 21 U/L (0-31); Albumin Level 4.1 g/dL (3.5-5.0); Alkaline Phosphatase 88 U/L (39-117); Anion Gap 8 (12-20); Aspartate Amino Transferase 27 U/L (5-31); Bilirubin Direct 0.2 mg/dL (0.0-0.5); Bilirubin Total 0.6 mg/dL (0.0-1.0); Blood Urea Nitrogen 11 mg/dL (9-16); Calcium 9.4 mg/dL (8.4-10.2); Carbon Dioxide 28 mmol/L (22-29); Chloride 109 mmol/L (96-108); Cholesterol 280 mg/dL (<200); Estimated Glomerular Filt Rate > 60; Glucose Random 84 mg/dL (60-115); HDL Cholesterol 52 mg/dL (>40); LDL Cholesterol Calculated 176 mg/dL (<100); Potassium 4.2 mmol/L (3.3-5.1); Sodium 141 mmol/L (135-145); Total Protein 7.4 g/dL (6.5-8.0); Triglycerides 262 mg/dL (<150)
== END 2025-02-13 11:47 | disposition home or self-care (01) ==
LOC: HO.CHCLDS 11:46
PROVIDERS: Visit Provider Student in an Organized Health Care Education/Training Program
DX: E78.2 Mixed hyperlipidemia (principal)
CPT/HCPCS: 36415; 80048; 80061; 80076

== ENCOUNTER 2025-07-10 09:59 | Outpatient (REF) | payer OTHER, SELFPAY ==
--- OUTSIDE RECORDS SUMMARY | 2025-07-09 10:15 | XMS_ITS | Encounter Summary ---
Author Organization [employer] Address [address] [place] [address] 7t [place] [address] Care Team Providers Care Set Designer Name Role Phone Richie Fam MD Primary Care Prov ider Encounter Details Date Type Department Care Team (Latest Contact Info) Description 07/09/2025 10:15 AM EDT Telemedicine [facility] MED & PEDS [address] [place], [place] [phone] Richie Fam MD [address] [place] [address] Mixed hyperlipidemia (Primary Dx) Social History Tobacco Use Types Packs/Day Years [...] housing situation today? I have mary dominguez 05/07/[address] you li ve. Do you have problems with any of the following? None of the above 05/07/2025 Food Insecurity Answer Date Recorded Within the past 12 months, y ou worried that your food would run out before you got money to buy more: Never True 05/07/2025 Within the past 12 months,th e food you bought just didn't last and you didn't have enough money to get more: Never True Transportation Answer Date Recorded In the past 12 months, has l ack of transportation kept you from medical appts, meetings, work or from getting things needed for daily living? No 05/07/2025 Utilities Answer Date Recorded In the past 12 months, has t he electric, gas, oil or water company threatened to shut off services in your home? No 05/07/2025 Depression Answer Date Recorded Patient Health Questionnaire-2 Score 0 08/30/2024 Internet Access Answer Date Recorded Internet Access Q1 Yes 05/07/2025 Internet Access Q2 Not on file 05/07/2025 Comments Unknown Sex and Gender Information Value Date Recorded Sex Assigned at Female 09/14/2022 10:37 AM EDT Legal Sex Female 10:37 AM EDT Gender Identity Female 09/14/2022 10:37 AM EDT Sexual Orientation Straight 09/14/2022 10 :37 AM EDT documented as of this encounter Progress Notes * Richie Nava MD - 07/09/2025 10:15 AM EDT Subjective Patient ID: Jazlyn Chin is a 59 y.o. female who presents for No chief complaint on file.. Hyperlipidemia This is a chronic problem. She has no history of chronic renal disease, diabetes, hypothyroidism, liver disease, obesity or nephrotic syndrome. Pertinent negatives include no chest pain, focal sensory loss, focal weakness, leg pain, myalgias or shortness of breath. Review of Systems Respiratory: Negative for shortness of breath. Cardiovascular: Negative for chest pain. Musculoskeletal: Negative for myalgias. Neurological: Negative for focal weakness. Objective Physical Exam Neurological: General: No focal deficit present. Mental Status: She is oriented to person, place, and time. Psychiatric: Mood and Affect: Mood normal. Behavior: Behavior normal. Assessment/Plan Problem List Items Addressed This Visit Hyperlipidemia - Primary Patient took medications for almost a week but then stopped them, she has been adressing her diet, not interested in taking other cholesterol medications, risk discussed, follow up in 3 mot[facility] documented in this encounter Miscellaneous Notes * Assessment & Plan Note - Richie Nava MD - 07/09/2025 2:07 PM EDTAssociated Problem(s): Hyperlipidemia Patient took medications for almost a week but then stopped them, she has been adressing her diet, not interested in taking other cholesterol medications, risk discussed, follow up in 3 motn[facility] documented in this encounter Plan of Treatment Not on file documented as of this encounter Visit Diagnoses Diagnosis Mixed hyperlipidemia- Primary documented in this encounter Additional Health Concerns Assessment Noted Time PHQ-9 Depression Total Score: 0 08/30/20 24 9:27 AM EDT documented as of this encounter Care Teams Set Designer Relationship Specialty Start Date End Date Richie Fam MD [address] [place] [address] PCP - General Internal Medicine 10/21/20 documented as of this encounter
--- OUTSIDE RECORDS SUMMARY | 2025-07-10 10:41 | XMS_ITS | Clinical Summary ---
Author Organization [employer] Address [address] [place] [address] 7t [place] [address] Care Team Providers Care Named Account Executive Name Role Phone Richie Fam MD Primary [...] OR SLEEP 30 capsule 2 3 Active sucralfate (Carafate) 1 g tablet TAKE 1 TABLET(1 GRAM) BY MOUTH BEFORE BREAKFAST AND BEFORE THE EVENING MEAL 60 tablet 4 Active simvastatin (Zocor) 40 MG tabletIndications: Mixed hyperlipidemia TAKE 1 TABLET(40 MG) BY MOUTH IN THE EVENING 90 tablet 3 5 Active gemfibrozil (Lopid) 600 MG tablet Take 1 tablet (600 mg) by mouth before breakfast and before evening meal. 60 tablet 5 Active Active Problems Problem Noted Date [...] pain 12/17/2022 Hyperlipidemia 12/17/2022 Assessment & Plan (07/09/2025 2:07 PM EDT): Patient took medications for almost a week but then stopped them, she has been adressing her diet, not interested in taking other cholesterol medications, risk discussed, follow up in 3 [facility] Assessment & Plan (05/27/2025 1:17 PM EDT): Has tried multiple high intensity statin without tlerance, will add gemfibrozil, follow up gi Assessment & Plan (03/07/2025 8:13 PM EDT): Not at target, she is not taking statin therapy due to abdominal pain, will provide gemfibrozil, follow up in 2 month Assessment & Plan (08/30/2024 9:58 AM EDT): [...] (12/17/2022): Added automatically from request for surgery [id number] Fibromyalgia 06/14/2017 Endometriosis determined by laparoscopy 06/14/20 [...] Encounters Date Type Department Care Team Description 07/09/2025 10:15 AM EDT Telemedicine [facility] MED & PEDS [address] [place] [address] Richie Fam MD Mixed hyperlipidemia (Primary Dx) 07/06/2025 Telephone [facility] PED[facility] [address] [place] [address] Richie Fam MD chart prep 05/07/2025 1:15 PM EDT Telemedicine [facility] MED [facility] PED[facility] [address] [place] [address] Richie Fam MD Mixed hyperlipidemia (Primary Dx); Encounter for screening mammogram for malignant neoplasm of breast 05/07/2025 Refill [facility] PEDS [address] [place] [address] Richie Fam MD 05/07/2025 Telephone [facility] MEDICINE [address] [place] [address] Richie Fam MD Medication Question 05/07/2025 Travel 05/04/2025 Telephone [facility] MED [facility] PEDS [address] [place], [place] [phone] Richie Fam MD chart prep from Last 3 Months Immunizations Immunization Administration Dates Next Due Tdap 03/26/2022 Social [...] Sign Reading Time Taken Comments Blood Pressure 130/72 03/07/2025 3:01 PM EDT Pulse 80 03/07/2025 3:01 PM EDT Temperature 37.2 C (99 F) 03/07/2025 3:01 PM EDT Respiratory Rate 20 02/13/2025 11:15 AM EDT Oxygen Saturation 98% 02/13/2025 11:15 AM EDT Inhaled Oxygen Concentration - - Weight 59 kg (130 lb) 03/07/2025 3:01 PM EDT Height 149.9 cm (4' 11 ) 03/07/2025 3:01 PM EDT Body Mass Index 26.26 03/07/2025 3:01 PM EDT Plan of Treatment Health Maintenance Due Date Last Done Comments CT Colonography 1963 FIT DNA/Cologuard 1963 FIT 1963 FOBT 1963 Sigmoidoscopy 1963 Disability Screening 1963 Derm Melanoma Skin Check 05/26/1964 Hepatitis A Vaccines (1 of 2 - Risk 2-dose series) 1982 Pneumococcal Vaccine: 50+ Years (1 of 2 - PCV) 1982 Zoster Vaccines (1 of 2) 2013 Hepatitis B Vaccines (1 of 3 - Risk 3-dose series) 2023 RSV Patients and Patients Aged 60 years or older (1 - Risk 60-74 years 1-dose series) 2023 COVID-19 Vaccine (1 - 2023-2 5 season) 2024 Influenza Vaccine (#1) 2025 Tobacco Screening 07/27/2025 07/27/2024 Depression Screening 08/30/2025 08/30/2024, 08/30/2024 Mammogram 09/17/2025 09/17/2023 Alcohol/Substance Use Screening 05/07/2026 05/07/2025 SDOH Screening 05/07/2026 05/07/2025 Cervical Cancer Screening 02/04/2028 HPV/Cotest 02/04/2028 02/03/2023 [...] age to complete this topic Meningococcal B Vaccine Aged Out No l onger eligible based on patient's age to complete [...] Procedure Name Priority Date/Time Associated Diagnosis Comments HM MAMMOGRAPHY Routine 09/17/2023 HEPATITIS PANEL, GENERAL Routine 06/03/2023 11:23 AM EDT RUQ pain PAP/HPV Routine 02/03/2023 COLONOSCOPY Routine 01/15/2022 12:01 PM EST HIV 1/2 ANTIGEN/ANTIBODY, FOURTH GENERATION W/RFL Routine 10/28/2020 10:29 AM EST from Last 3 Months or Most Recently Relevant to Health Maintenance Results * Mammography (09/17/2023) Mammogram Bi-rads 2 Anatomical Region Laterality Modality Other Historical Provider [facility] Final Result * Hepatitis A,B,C Profile (06/03/2023 11:23 AM EDT) Hepatitis A IgM Nonreactive Nonreactive [facility] Comment:IgM antibodies to GUILLORY V not detected; does not exclude earlyacute or recovered HAV infection. ~Hepatitis B Surface Antibody NONREACTIVE Nonreactive [facility] Comment:Nonreactive: < 8.00 mIU/mL Hepatitis B Core Antibody Nonreactive Nonreactive [facility] Hepatitis C Antibody Nonreactive Nonreactive [facility] Comment:Antibodies to HCV no t detected; does not exclude early acuteHCV infection. Hepatitis B Surface Ag Negative Negative [facility] Blood 06/03/2023 11:2 3 AM EDT 06/03/2023 2:04 PM EDT Lorelei Clinton RETURNED GOODS RECEIVING CLERK LAB BLOOD ORDERABLES Final Res ult [facility] [address] [place] [address] [phone] * Pap Smear (02/03/2023) Pap Negative for intraephithelial lesion or malignancy Negative for intraephithelial lesion or malignancy, Other HPV Undetected Undetected, Indeterminate, Quantitative, Not Detected Historical Provider [facility] Final Result * Hm Colonoscopy (01/15/2022 12:01 PM EST) Colonoscopy Normal Normal [facility] Provider [facility] Edited Result - Final * HIV 1/2 ANTIGEN/ANTIBODY,FOURTH GENERATION W/RFL (10/28/2020 10:29 AM EST) HIV-1/2 ANTIGEN AND ANTIBODIES, 4TH GENERATION W/ REFLEX NON-REACT ALIS NON-REACT ALIS [facility] Comment: HIV-1 antigen and HIV-1/HIV-2 antibodies were not detected. There is no laboratory evidence of HIV infection. PLEASE NOTE: This information has been disclosed to you from records whose confidentiality may be protected by state law. If your state requires such protection, then the state law prohibits you from making any further disclosure of the information without the specific written consent of the person to whom it pertains, or as otherwise permitted by law. A general authorization for the release of medical or other information is NOT sufficient for this purpose. For additional information please refer to http://[email or web address].com.[employer]/faq/DUD609 (This link is being provided for informational/ educational purposes only.) The performance of this assay has not been clinically validated in patients less than 2 years old. 10/28/2020 10:2 9 AM EST Richie Nava MD LAB BLOOD ORDERABL ES Final Result [facility] [address] from Last 3 Months or Most Recently Relevant to Health Maintenance Insurance [facility] ONE CARE < 65 [place] [employer] [id number] Care Teams Named Account Executive Relationship Specialty Start Date End Date Richie Fam MD [address] [place] [address] PCP - General Internal Medicine 10/21/20
--- OUTSIDE RECORDS SUMMARY | 2025-07-10 10:41 | XMS_ITS | Clinical Summary ---
Author Organization [facility] Address [address] [place] [address] Care Team Providers Care Ship Carpenter Name Role Phone Stella Pratt MD Primary [...] (1 of 2) 2013 Influenza Vaccine (#1) 2025 RSV Adult > 60+ Yrs or Pregn [...] age to complete this topic Care Teams Ship Carpenter Relationship Specialty Start Date End Date Stella Pratt MD PCP - General Internal Medicine 12/20/17
--- OUTSIDE RECORDS SUMMARY | 2025-07-10 10:41 | XMS_ITS | Encounter Summary ---
Author Organization [employer] Address [address] [facility] 7 [place] [address] Care Team Providers Care Tank Filler Name Role Phone Richie Fam MD Primary Care Prov ider Reason for Visit * Reason Comments Med Refill Encounter Details Date Type Department Care Team ([facility] st Contact Info) Description 09/02/2024 Refill [facility] MED & PEDS [address] [place], [place] [phone] Richie Fam MD 505 [place] [address] Mixed hyperlipidemia Social History Tobacco Use Types [...] documented as of this encounter Care Teams Tank Filler Relationship Specialty Start Date End Date Richie Fam MD [address] [place] [id number] PCP - General Internal Medicine 10/21/20 documented as of this encounter
--- OUTSIDE RECORDS SUMMARY | 2025-07-10 10:42 | XMS_ITS | Encounter Summary ---
Author Organization [employer] Address [address] [place] [address] 7 [place] [address] Care Team Providers Care Medical Esthetician Name Role Phone Richie Fam MD Primary Care Prov ider Encounter Details Date Type Department Care Team (Late st Contact Info) Description 12/21/2022 Telephone [facility] MEDICINE [address] [place], [place] [phone] Richie Fam MD [address] [place], [place] [phone] Social History Tobacco Use Types Packs/Day Years [...] on filedocumented in this encounter Care Teams Medical Esthetician Relationship Specialty Start Date End Date Richie Fam MD [address] [place] [address] PCP - General Internal Medicine 10/21/20 documented as of this encounter
--- OUTSIDE RECORDS SUMMARY | 2025-07-10 10:42 | XMS_ITS | Clinical Summary ---
Author Organization [facility] Address [address] [place] [address] Care Team Providers Care Editor Trade Journal Name Role Phone Unavailable Primary Care Provider Unavailabl e Allergies No known active allergies Medications levothyroxine (Synthroid) 50 MCG tablet Take 50 mcg by mouth daily on an empty stomach. Active Social History Tobacco Use Types Packs/Day Years Used Date Smoking Tobacco: Never Assessed Comments Unknown Sex and Gender Information Value Date Recorded Sex Assigned at Not on file Legal Sex Female 3:13 PM EDT Gender Identity Not on file Sexual Orientation Not on file Plan of Treatment Health Maintenance Due Date Last Done Comments Hepatitis C Virus Screening 1963 HIV Screening 1976 DTaP/Tdap/Td Vaccines (1 - Tdap) 1982 Pap Smear (Ages 21-65) 1984 Mammogram 2003 Colonoscopy 2008 Pneumococcal Vaccines 50+ (1 of 1 - PCV) 2013 Zoster (Shingles) Vaccine (1 of 2) 2013 COVID-19 Vaccine ( - 2023-2 5 season) 2024 Influenza Vaccine 06/15/2025 RSV Vaccine 60 years and old er and Patients (1 - 1-dose 75+ series) 2038 Hepatitis B Vaccines Aged Out No long er eligible based on patient's age to complete this topic Insurance [facility] [employer]
--- OUTSIDE RECORDS SUMMARY | 2025-07-10 10:42 | XMS_ITS | Encounter Summary ---
Author Organization [employer] Address [address] [place] [address] [place], [place] [address] Care Team Providers Care Sql Data Analyst Name Role Phone Richie Fam MD Primary Care Prov ider Reason for Visit * Reason Comments Med Refill Encounter Details Date Type Department Care Team ([facility] st Contact Info) Description 12/24/2022 Refill [facility] MED & PEDS [address] [place], [place] [phone] Richie Fam MD [address] [place] [address] Mixed hyperlipidemia Social History Tobacco Use Types [...] hyperlipidemia documented in this encounter Care Teams Sql Data Analyst Relationship Specialty Start Date End Date Richie Fam MD [address] [place] [address] PCP - General Internal Medicine 10/21/20 documented as of this encounter
--- OUTSIDE RECORDS SUMMARY | 2025-07-10 10:42 | XMS_ITS | Encounter Summary ---
Author Organization [employer] Address 75 [facility] 7 [place] [address] Care Team Providers Care Custody Officer Name Role Phone Richie Fam MD Primary Care Prov ider Reason for Visit * Reason Onset Date Comments Nurse Triage 07/25/2024 Encounter Details Date Type Department Care Team ([facility] st Contact Info) Description 07/25/2024 Telephone [facility] MEDICINE [address] [place] [address] Richie Fam MD [address] [place] [phone] Nurse Triage Social History Tobacco Use Types [...] documented as of this encounter Care Teams Custody Officer Relationship Specialty Start Date End Date Richie Fam MD [address] [place] [id number] PCP - General Internal Medicine 10/21/20 documented as of this encounter
--- OUTSIDE RECORDS SUMMARY | 2025-07-10 10:42 | XMS_ITS | Clinical Summary ---
Author Organization [facility] Address [address] [place] [address] Phone Care Team Providers Care Assistant Cook Name Role Phone Stella Pratt MD Primary Care Provider Allergies Active Allergy Reactions Criticality Noted Date Comments Morphine Palpitations 02/22/2025 Medical History Medical History Date Comments Hypothyroid 06/14/2017 DX:Hypothyroid Hypercholesteremia 06/14/2017 DX:Hyperchole steremia History of depression 06/14/2017 DX:History of depression; COMMENT: With panic attacks History of asthma 06/14/2017 DX:History of asthma Dysphagia 06/14/2017 DX:Dysphagia Endometriosis determined by laparoscopy DX:Endometriosis determined by laparoscopy; COMMENT: 2006 Bowel perforation (CMS/HCC V 24, CMS/HCC V28) 2006 DX:Bowel perforation ([facility]); COMMENT: complication of laparoscoy Family History Medical [...] Sexual Orientation Not on file Obstetrics History Last Filed Vital Signs Vital Sign Reading Time Taken Comments Blood Pressure 122/55 02/22/2025 4:50 PM EDT Pulse 80 02/22/2025 4:50 PM EDT Temperature 36.8 C (98.2 F) 02/22/2025 4:50 PM EDT Respiratory Rate 16 02/22/2025 4:50 PM EDT Oxygen Saturation 98% 02/22/2025 4:50 PM EDT Inhaled Oxygen Concentration - - Weight 60.8 kg (134 lb) 02/22/2025 11:38 AM EDT Height 149.9 cm (4' 11 ) 02/22/2025 11:38 AM EDT Body Mass Index 27.06 02/22/2025 11:38 AM EDT Plan of Treatment Health Maintenance Due Date Last Done Comments Breast Cancer Screening 1965 Hepatitis A Vaccines (1 of 2 - Risk 2-dose series) 1982 Pneumococcal Vaccine: 50+ Years (1 of 2 - PCV) 1982 Cervical Cancer Screening: P ap Smear 1984 Zoster Vaccines (1 of 2) 2013 Hepatitis B Vaccines (1 of 3 - Risk 3-dose series) 2023 RSV Immunization Adult Patients (1 - Risk 60-74 years 1-dose series) 2023 COVID-19 Vaccine (1 - 2023-2 5 season) 2024 Depression Screening 11/15/2024 Colorectal Cancer Screening: Colonoscopy 02/22/2025 Medicare Annual Wellness Visit 02/22/2025 Social Influencers of Health Screening 02/22/2025 Influenza Vaccine (#1) 2025 Hypertension/CHF/CAD Annual BMP Blood Test 02/22/2026 02/22/2025, 02/13/2025, 02/01/2025 Cholesterol Screening (Lipid Panel) 02/13/2030 02/13/2025, 02/22/2019 DTaP,Tdap,and Td Vaccines (2 - Td or Tdap) 03/26/2032 03/26/2022 HIV Screening Completed 10/28/2020 Hepatitis C Screening Completed 02/11/2024 HIB Vaccines Aged Out No longer eligi [...] to complete this topic RSV Immunization Patients Under 20 months Aged Out No longer eligible b ased on patient's age to complete this topic Varicella Vaccines Aged Out No longer eligible based on patient's age to complete this topic Procedures Procedure Name Priority Date/Time Associated Diagnosis Comments COMPREHENSIVE METABOLIC PANEL STAT 02/22/2025 11:55 AM EDT from Last 3 Months or Most Recently Relevant to Health Maintenance Results * (ABNORMAL) Comprehensive metabolic panel (02/22/2025 11:55 AM EDT) Sodium 138 133 - 145 mmol/L LAB CHEMISTRY METHOD 02/22/2025 12:28 PM [facility] Potassium 4.0 3.5 - 5.5 mmol/L LAB CHEMISTRY METHOD 02/22/2025 12:28 PM [facility] Chloride 104 96 - 110 mmol/L LAB CHEMISTRY METHOD 02/22/2025 12:28 PM [facility] CO2 25 21 - 32 mmol/L LAB CHEMISTRY METHOD 02/22/2025 12:28 PM [facility] Anion Gap 9 3 - 11 LAB CHEMISTRY METHOD 02/22/2025 12:28 PM [facility] Glucose 106(H) 70 - 100 mg/dL LAB CHEMISTRY METHOD 02/22/2025 12:28 PM [facility] BUN 11 5 - 25 mg/dL LAB CHEMISTRY METHOD 02/22/2025 12:28 PM [facility] Creatinine 0.93 0.50 - 1.10 mg/dL LAB CHEMISTRY METHOD 02/22/2025 12:28 PM [facility] eGFR 70 >=60 mL/min/1. 73m2 LAB CHEMISTRY METHOD 02/22/2025 12:28 PM [facility] Comment:Calculation based on the Chronic Kidney Disease Epidemiology Collaboration (CKD-EPI) equation refit without adjustment for race. BUN/Creatinine Ratio 11.8 LAB CHEMISTRY METHOD 02/22/2025 12:28 PM [facility] Calcium 9.4 8.5 - 10.5 mg/dL LAB CHEMISTRY METHOD 02/22/2025 12:28 PM EDT [facility] AST (SGOT) 19 10 - 42 unit/L LAB CHEMISTRY METHOD 02/22/2025 12:28 PM EDT [facility] ALT (SGPT) 22 10 - 60 unit/L LAB CHEMISTRY METHOD 02/22/2025 12:28 PM EDT [facility] Alkaline Phosphatase 105 42 - 121 unit/L LAB CHEMISTRY METHOD 02/22/2025 12:28 PM EDT [facility] Total Protein 7.6 6.0 - 8.0 g/dL LAB CHEMISTRY METHOD 02/22/2025 12:28 PM EDT [facility] Albumin 3.7 3.2 - 5.0 g/dL LAB CHEMISTRY METHOD 02/22/2025 12:28 PM EDT [facility] Total Bilirubin 0.5 0.0 - 1.4 mg/dL LAB CHEMISTRY METHOD 02/22/2025 12:28 PM EDT [facility] Blood Venous blood specimen / Unknown Venipuncture / Unknown 02/22/2025 11:55 AM EDT 02/22/2025 12:03 PM EDT [facility] BLOOD ORDERABLES Final Re sult [facility] [address] [place] [address], from Last 3 Months or Most Recently Relevant to Health Maintenance Insurance [facility] MEDICARE Member Subscriber Plan / Payer (Ef fective 2025-Present) Name:Jazlyn Petersen Relation to Subscriber:Self Name:Jazlyn Petersen Payer ID:[id number] Group ID:Not on file Type:Not on file Address: [place] [address] [id number] Care Teams Assistant Cook Relationship Specialty Start Date End Date Stella Pratt MD [address] [place] [address] PCP - General Internal Medicine 03/31/17
--- OUTSIDE RECORDS SUMMARY | 2025-07-10 10:42 | XMS_ITS | Encounter Summary ---
Author Organization [employer] Address [address] [place] [address] 7 [place] [address] Care Team Providers Care Dope Firer Name Role Phone Richie Fam MD Primary Care Prov ider Reason for Visit * Reason Comments Med Refill Encounter Details Date Type Department Care Team ([facility] st Contact Info) Description 05/07/2025 Refill [facility] CHC MED & PEDS [address] [place], [place] [phone] Richie Fam MD [address] [place] [address] Social History Tobacco Use Types Packs/Day Years [...] documented as of this encounter Care Teams Dope Firer Relationship Specialty Start Date End Date Richie Fam MD [address] [place] [address] PCP - General Internal Medicine 10/21/20 documented as of this encounter
--- OUTSIDE RECORDS SUMMARY | 2025-07-10 10:42 | XMS_ITS | Encounter Summary ---
Author Organization [employer] Address [address] [facility] 7 [place] [address] Care Team Providers Care Manager Retail Store Name Role Phone Richie Fam MD Primary Care Prov ider Reason for Visit * Reason Onset Date Comments Call Back Request 08/14/2024 Encounter Details Date Type Department Care Team ([facility] st Contact Info) Description 08/14/2024 Telephone [facility] MEDICINE [address] [place] [address] Richie Fam MD [address] [place] [address] Call Back Request Social History Tobacco Use [...] the labs as requested on 07/27 at [facility] and was told there is no [...] documented as of this encounter Care Teams Manager Retail Store Relationship Specialty Start Date End Date Richie Fam MD [address] [place] [id number] PCP - General Internal Medicine 10/21/20 documented as of this encounter
--- OUTSIDE RECORDS SUMMARY | 2025-07-10 10:42 | XMS_ITS ---
Author Name [facility] Organization Unknown Encounters Encounter Type Encounter Reason Primary Diagnosis Location Date Ambulatory Contact with and (suspected) exposure to covid-19 [facility] 08/25/2021 Care Team Organization Name Specialty Phone Email Start Date End Da te [facility] 08/26/2021 07/03/2024 [facility] 08/25/2021 08/25/2021
--- OUTSIDE RECORDS SUMMARY | 2025-07-10 10:42 | XMS_ITS | Encounter Summary ---
Author Organization [employer] Address [address] [place] [address] 7 [place] [address] Care Team Providers Care Dissolver Operator Name Role Phone Richie Fam MD Primary Care Prov ider Reason for Visit * Reason Onset Date Comments Results 01/19/2025 Lab Orders 01/19/2025 Encounter Details Date Type Department Care Team ([facility] st Contact Info) Description 01/19/2025 Telephone [facility] CHC MED & PEDS [address] [place], [place] [phone] Richie Fam MD [address] [place] [address] Results; Lab Orders Social History Tobacco Use [...] results: labs Date when done: 01/12/25 Facility: [facility] Pt would also like to discuss concern [...] documented as of this encounter Care Teams Dissolver Operator Relationship Specialty Start Date End Date Richie Fam MD [address] [place] [id number] PCP - General Internal Medicine 10/21/20 documented as of this encounter
--- OUTSIDE RECORDS SUMMARY | 2025-07-10 10:42 | XMS_ITS | Encounter Summary ---
Author Organization [employer] Address [address] [place] [address] 7 [place] [address] Care Team Providers Care Application Engineer Name Role Phone Richie Fam MD Primary Care Prov ider Reason for Visit * Reason Onset Date Comments chart prep 07/06/2025 Encounter Details Date Type Department Care Team ([facility] st Contact Info) Description 07/06/2025 Telephone [facility] CHC MED & PEDS [address] [place] [address] Richie Fam MD [address] [place] [address] chart prep Social History Tobacco Use Types Packs/Day Years [...] encounter Miscellaneous Notes * Telephone Encounter - Margo Skinner MA - 07/06/2025 1:02 PM EDT Chart Prep Labs: not done Images: not done Referrals: not applicable Vaccines due: Covid, PCV20, Hep B, Hep A, RSV, and Zoster Screenings: not applicable Overdue care gaps: Disability screen documented in this encounter Plan of Treatment Not on file documented as of this encounter Visit Diagnoses Not on filedocumented in this encounter Additional Health Concerns Assessment Noted Time PHQ-9 Depression Total Score: 0 08/30/20 24 9:27 AM EDT documented as of this encounter Care Teams Application Engineer Relationship Specialty Start Date End Date Richie Fam MD [address] [place] [id number] PCP - General Internal Medicine 10/21/20 documented as of this encounter
--- OUTSIDE RECORDS SUMMARY | 2025-07-10 10:42 | XMS_ITS | Encounter Summary ---
Author Organization [employer] Address [address] [facility] 7 [place] [address] Care Team Providers Care Inspector Precision Assembly Name Role Phone Richie Fam MD Primary Care Prov ider Reason for Visit * Reason Onset Date Comments Created In Error 07/25/2024 Encounter Details Date Type Department Care Team ([facility] st Contact Info) Description 07/25/2024 Telephone [facility] MEDICINE [address] [place] [address] Richie Fam MD [address] [place] [address] Created In Error Social History Tobacco Use [...] documented as of this encounter Care Teams Inspector Precision Assembly Relationship Specialty Start Date End Date Richie Fam MD [address] [place] [id number] PCP - General Internal Medicine 10/21/20 documented as of this encounter
--- OUTSIDE RECORDS SUMMARY | 2025-07-10 10:42 | XMS_ITS | Encounter Summary ---
Author Organization [employer] Address [address] [facility] 7 [place] [address] Care Team Providers Care Topology Teacher Name Role Phone Richie Fam MD Primary Care Prov ider Reason for Visit * Reason Onset Date Comments Referral 02/16/2025 Encounter Details Date Type Department Care Team ([facility] st Contact Info) Description 02/16/2025 Telephone [facility] MEDICINE [address] [place] [address] Richie Fam MD [address] [place] [address] Referral Social History Tobacco Use Types Packs/Day Years [...] encounter Miscellaneous Notes * Telephone Encounter - Sima Steve - 02/16/2025 11:56 AM EDT Tc from [facility] with [facility] informing referral that was placed to change procedure description needs to be changed to (Ct abdomen and pelvis with contrast) it needs to include the pelvis. Please Fax referral over to [facility] [phone] FAX If any questions please contact facility [phone] documented in this encounter Plan of Treatment Not on file documented as of this encounter Visit Diagnoses Not on filedocumented in this encounter Additional Health Concerns Assessment Noted Time PHQ-9 Depression Total Score: 0 08/30/20 24 9:27 AM EDT documented as of this encounter Care Teams Topology Teacher Relationship Specialty Start Date End Date Richie Fam MD [address] [place] [address] PCP - General Internal Medicine 10/21/20 documented as of this encounter
--- OUTSIDE RECORDS SUMMARY | 2025-07-10 10:42 | XMS_ITS | Encounter Summary ---
Author Organization [employer] Address [address] [facility] 7 [place] [address] Care Team Providers Care Casting Director Name Role Phone Richie Fam MD Primary Care Prov ider Reason for Visit * Reason Onset Date Comments Lab Orders 05/29/2024 Encounter Details Date Type Department Care Team ([facility] st Contact Info) Description 05/29/2024 Telephone [facility] MEDICINE [address] [place] [address] Richie Fam MD [address] [place] [phone] Lab Orders Social History Tobacco Use Types [...] documented as of this encounter Care Teams Casting Director Relationship Specialty Start Date End Date Richie Fam MD [address] [place] [phone] PCP - General Internal Medicine 10/21/20 documented as of this encounter
--- OUTSIDE RECORDS SUMMARY | 2025-07-10 10:42 | XMS_ITS | Encounter Summary ---
Author Organization [employer] Address [address] [place] [address] 7 [place] [address] Care Team Providers Care Die Sinker Name Role Phone Richie Fam MD Primary Care Prov ider Encounter Details Date Type Department Care Team (Late st Contact Info) Description 07/15/2023 Orders Only [facility] CHC MED & PEDS [address] [place], [place] [phone] Richie Fam MD [address] [place] [address] Social History Tobacco Use Types Packs/Day Years [...] documented as of this encounter Care Teams Die Sinker Relationship Specialty Start Date End Date Richie Fam MD [address] [place] [address] PCP - General Internal Medicine 10/21/20 documented as of this encounter
--- OUTSIDE RECORDS SUMMARY | 2025-07-10 10:42 | XMS_ITS | Encounter Summary ---
Author Organization [employer] Address [address] [facility] 7t [place] [address] Care Team Providers Care Process Control Board Operator Name Role Phone Richie Fam MD Primary Care Prov ider Encounter Details Date Type Department Care Team ([facility] st Contact Info) Description 12/22/2022 Telephone C CHC MED & PEDS [address] [place], [place] [phone] Richie Fam MD [address] [place] [address] Social History Tobacco Use Types Packs/Day Years [...] sever times due to [facility] in [place] not receiving fax . Advice Clerk re faxed order to [phone] . (Fax # ptprovided ) . Please call pt to clarify . documented in this encounter Plan of Treatment Not on file documented as of this encounter Visit Diagnoses Not on filedocumented in this encounter Care Teams Process Control Board Operator Relationship Specialty Start Date End Date Richie Fam MD [address] [place] [phone] PCP - General Internal Medicine 10/21/20 documented as of this encounter
--- OUTSIDE RECORDS SUMMARY | 2025-07-10 10:42 | XMS_ITS | Encounter Summary ---
Author Organization [employer] Address [address] [facility] 7t [place] [address] Care Team Providers Care Hoistman Name Role Phone Richie Fam MD Primary Care Prov ider Encounter Details Date Type Department Care Team (Late st Contact Info) Description 03/03/2024 Orders Only [facility] MEDICINE [address] [place] [address] ProviderPhillip MD Social History Tobacco Use Types [...] documented as of this encounter Care Teams Hoistman Relationship Specialty Start Date End Date Richie Fam MD [address] [place] [address] PCP - General Internal Medicine 10/21/20 documented as of this encounter
--- OUTSIDE RECORDS SUMMARY | 2025-07-10 10:42 | XMS_ITS | Encounter Summary ---
Author Organization [employer] Address [address] [place] [address] Care Team Providers Care Commercial Insulator Name Role Phone Richie Fam MD Primary Care Prov ider Reason for Referral * Imaging (Routine) - Pending Review Specialty Diagnoses / Procedures Referred By Contac t Referred To Contact Radiology Diagnoses EPPERSON (nonalcoholic steatohepatitis) Constipation, unspecified constipation type Procedures CT Abdomen Pelvis w/ Contrast Richie Fam MD [address] [place] [address] Phone: tel: fax: [facility] [address] [facility], [address] [address] Phone: tel: fax: Referral ID Status Reason Start Date Expiration Date V isits Requested Visits Authorized [id number] Pending Review 02/21/2025 02/21/2026 1 1 Reason for Visit * Reason Onset Date Comments Referral 02/20/2025 Encounter Details Date Type Department Care Team (Late st Contact Info) Description 02/20/2025 Telephone [facility] MEDICINE [address] [place] [address] Richie Fam MD [address] [place], [place] [phone] Referral Social History Tobacco Use Types Packs/Day [...] encounter Miscellaneous Notes * Telephone Encounter - Brittany Malone RN - 02/20/2025 11:27 AM EDT New abdominal CT order with contrast qued for provider to sign. * Telephone Encounter - Laura Thomas - 02/20/2025 10:55 AM EDT Tc from [place] with [facility] stating needs a new order for Abdomen and Pelvis with Contrast. documented in this encounter Plan of Treatment Not on file documented as of this encounter Procedures Procedure Name Priority Date/Time Associated Diagnosis Comments CT ABDOMEN PELVIS W CONTRAST Routine 03/20/2025 EPPERSON (nonalcoholic steatohepatitis) Constipation, unspecified constipation type documented in this encounter Results * CT Abdomen Pelvis w/ Contrast (03/20/2025) Anatomical Region Laterality Modality Body, Pelvis, Abdomen Computed T omography Richie Nava MD IMG CT PROCEDURES Final Result documented in this encounter Visit Diagnoses Diagnosis EPPERSON (nonalcoholic steatohepatitis) Other chronic nonalcoholic liver disease Constipation, unspecified constipation type documented in this encounter Additional Health Concerns Assessment Noted Time PHQ-9 Depression Total Score: 0 08/30/20 24 9:27 AM EDT documented as of this encounter Care Teams Commercial Insulator Relationship Specialty Start Date End Date Richie Fam MD [address] [place] [phone] PCP - General Internal Medicine 10/21/20 documented as of this encounter
[2025-07-10 14:57] LABS: Alanine Aminotransferase 15 U/L (0-31); Albumin Level 4.3 g/dL (3.5-5.0); Alkaline Phosphatase 96 U/L (39-117); Anion Gap 12 (12-20); Aspartate Amino Transferase 31 U/L (5-31); Blood Urea Nitrogen 13 mg/dL (9-16); Calcium 9.1 mg/dL (8.4-10.2); Carbon Dioxide 28 mmol/L (22-29); Chloride 106 mmol/L (96-108); Cholesterol 302 mg/dL (<200); Estimated Glomerular Filt Rate > 60; HDL Cholesterol 48 mg/dL (>40); Potassium 3.9 mmol/L (3.3-5.1); Sodium 142 mmol/L (135-145); Total Protein 7.6 g/dL (6.5-8.0); Triglycerides 267 mg/dL (<150)
== END 2025-07-10 10:00 | disposition home or self-care (01) ==
LOC: HO.CHCLDS 09:59
PROVIDERS: Visit Provider Internal Medicine
DX: E78.2 Mixed hyperlipidemia (principal)
CPT/HCPCS: 36415; 80053; 80061